=== PATIENT | female | born 1955 | race Caucasian/White ===

== ENCOUNTER → 2017-07-25 | Outpatient (REF) | payer OTHER ==
[2017-07-25 13:50] LABS: BASO # 0.1 10^3/uL (0.0-0.2); BASO % 0.5 % (0.0-1.0); EOS # 0.2 10^3/uL (0.0-0.50); EOS % 1.6 % (0.0-3.0); IMMATURE GRANULOCYTE % 0.6 % (0-0); LYMPH # 3.2 10^3/uL (1.5-4.5); LYMPH % 30.4 % (24.0-44.0); MEAN CORPUSCULAR HEMOGLOBIN 28.5 pg (27.0-33.0); MEAN CORPUSCULAR HGB CONC 32.2 g/dl (32.0-36.5); MEAN CORPUSCULAR VOLUME 88.6 fl (80.0-96.0); MONO # 0.8 10^3/uL (0.0-0.8); MONO % 7.1 % (0.0-5.0); NEUTROPHILS # 6.3 10^3/uL (1.8-7.7); NEUTROPHILS % 59.8 % (36.0-66.0); PLATELET COUNT, AUTOMATED 347 10^3/uL (150-450); RED CELL DISTRIBUTION WIDTH 13.4 % (11.5-14.5); WHITE BLOOD COUNT 10.5 10^3/uL (4.0-10.0)
[2017-07-25 14:12] LABS: ALBUMIN 3.6 GM/DL (3.2-5.2); ALBUMIN/GLOBULIN RATIO 1.29 (1.00-1.93); ALKALINE PHOSPHATASE 69 U/L (45-117); ALT/SGPT 27 U/L (12-78); ANION GAP 6 MEQ/L (8-16); AST/SGOT 11 U/L (7-37); BILIRUBIN,TOTAL 0.3 MG/DL (0.2-1.0); BLOOD UREA NITROGEN 26 MG/DL (7-18); CALCIUM LEVEL 9.6 MG/DL (8.8-10.2); CARBON DIOXIDE LEVEL 32 MEQ/L (21-32); CHLORIDE LEVEL 105 MEQ/L (98-107); CHOLESTEROL LEVEL 283 MG/DL (<200); CREATININE FOR GFR 0.89 MG/DL (0.55-1.02); FREE T4 0.93 NG/DL (0.76-1.46); GLOMERULAR FILTRATION RATE > 60.0 (>45); GLUCOSE, FASTING 101 MG/DL (80-110); POTASSIUM SERUM 4.9 MEQ/L (3.5-5.1); SODIUM LEVEL 143 MEQ/L (136-145); TOTAL PROTEIN 6.4 GM/DL (6.4-8.2); TRIGLYCERIDES LEVEL 246 MG/DL (<150)
== END ==
LOC: M LAB REF 13:31 → M LABDRWAD 13:33
PROVIDERS: ATTEND Nurse Practitioner Adult Health
DX: Z51.81 Encounter for therapeutic drug level monitoring (principal); Z79.01 Long term (current) use of anticoagulants; E55.9 Vitamin D deficiency, unspecified; E11.9 Type 2 diabetes mellitus without complications; I10 Essential (primary) hypertension; E78.4 Other hyperlipidemia

== ENCOUNTER → 2017-08-12 | Outpatient (CLI) | payer OTHER ==
--- NOTE | 2017-08-12 14:04 | REP ---
Clinical: Pain. Technique: AP, lateral, bilateral oblique views of the left fifth toe. Findings: Soft tissue swelling over the distal aspect of the fifth toe cannot be excluded and subtle nondisplaced fracture versus degenerative changes at the distal interphalangeal joint cannot be excluded. Evaluation is limited due to age related degenerative changes. No subcutaneous emphysema or radiodense foreign body. Impression: Subtle nondisplaced injury involving the middle/distal phalanges versus degenerative changes cannot be excluded. Metatarsal bone, metatarsophalangeal and proximal phalanx is normal. Signed by Grant Obando MD 08/12/2017 01:57 P
== END ==
LOC: M ADAMS 12:58
PROVIDERS: ATTEND Physician Assistant
DX: M79.675 Pain in left toe(s) (principal)

== ENCOUNTER → 2017-08-14 | Outpatient (REF) | payer OTHER | LOC: M SFHCWAGY 09:59 | PROVIDERS: ATTEND Nurse Practitioner Women's Health | DX: Z12.4 Encounter for screening for malignant neoplasm of cervix (principal) ==

== ENCOUNTER → 2017-08-14 | Outpatient (CLI) | payer OTHER ==
--- NOTE | 2017-08-14 10:46 | REPMRS ---
Patient History The patient states she had a clinical breast exam in 07/2017. Patient is postmenopausal. Family history of breast cancer in sister and endometrial cancer in mother. Digital Woman Screen Mammo: August 14, 2017 - Exam #: [id number] Bilateral CC and MLO view(s) were taken. Technologist: Ruma Cruz, Technologist Prior study comparison: April 09, 2016, digital woman screen mammo performed at [facility]. April 07, 2015, digital woman screen mammo performed at [facility]. March 10, 2014, digital woman screen mammo performed at [facility]. FINDINGS: There are scattered fibroglandular densities. There has been no change in the appearance of the mammogram from the prior studies. There is a mild amount of scattered fibroglandular density which is fairly symmetric. There is no interval development of dominant mass, architectural distortion, or clustered microcalcification suggestive of malignancy. ASSESSMENT: BI-RADS/ACR category 1 mammogram. Negative. Recommendation Routine screening mammogram in 1 year (for women over age 40). This mammogram was interpreted with the aid of an FDA-approved computer-aided dectection system. Electronically Signed By: Jesús Fernandez MD 08/14/17 1254
== END ==
LOC: M WHC 09:17
PROVIDERS: ATTEND Nurse Practitioner Women's Health
DX: Z12.31 Encounter for screening mammogram for malignant neoplasm of breast (principal)

== ENCOUNTER → 2017-11-13 | Outpatient (REF) | payer OTHER ==
[2017-11-13 13:06] LABS: BASO % 0.2 % (0.0-1.0); EOS # 0.1 10^3/uL (0.0-0.50); EOS % 0.8 % (0.0-3.0); HEMATOCRIT 36.6 % (36.0-47.0); HEMOGLOBIN 12.2 g/dl (12.0-16.0); IMMATURE GRANULOCYTE # 0.1 10^3/uL (0-0); IMMATURE GRANULOCYTE % 0.5 % (0-3.0); LYMPH # 2.3 10^3/uL (1.5-4.5); LYMPH % 25.4 % (24.0-44.0); MEAN CORPUSCULAR HGB CONC 33.3 g/dl (32.0-36.5); MEAN CORPUSCULAR VOLUME 87.1 fl (80.0-96.0); MONO # 0.6 10^3/uL (0.0-0.8); MONO % 6.5 % (0.0-5.0); NEUTROPHILS # 6.1 10^3/uL (1.8-7.7); NEUTROPHILS % 66.6 % (36.0-66.0); PLATELET COUNT, AUTOMATED 292 10^3/uL (150-450); RED CELL DISTRIBUTION WIDTH 13.2 % (11.5-14.5); WHITE BLOOD COUNT 9.1 10^3/uL (4.0-10.0)
[2017-11-13 13:19] LABS: ESTIMATED AVERAGE GLUCOSE 160 MG/DL (60-110); HEMOGLOBIN A1c 7.2 %
[2017-11-13 13:21] LABS: ALBUMIN 3.9 GM/DL (3.2-5.2); ALKALINE PHOSPHATASE 60 U/L (45-117); ALT/SGPT 33 U/L (12-78); ANION GAP 5 MEQ/L (8-16); AST/SGOT 20 U/L (7-37); BILIRUBIN,TOTAL 0.3 MG/DL (0.2-1.0); BLOOD UREA NITROGEN 17 MG/DL (7-18); CALCIUM LEVEL 8.9 MG/DL (8.8-10.2); CARBON DIOXIDE LEVEL 28 MEQ/L (21-32); CHLORIDE LEVEL 105 MEQ/L (98-107); CHOLESTEROL LEVEL 161 MG/DL (<200); CHOLESTEROL RISK RATIO 3.285 (<5); CREATININE FOR GFR 0.78 MG/DL (0.55-1.30); FREE T4 0.82 NG/DL (0.76-1.46); GLOMERULAR FILTRATION RATE > 60.0 (>45); GLUCOSE, FASTING 126 MG/DL (70-100); HDL CHOLESTEROL 49 MG/DL (>40); NON-HDL-C 112 MG/DL; POTASSIUM SERUM 4.7 MEQ/L (3.5-5.1); SODIUM LEVEL 138 MEQ/L (136-145); THYROID STIMULATING HORMONE 0.312 uIU/ML (0.358-3.740); TOTAL PROTEIN 6.9 GM/DL (6.4-8.2); TRIGLYCERIDES LEVEL 185 MG/DL (<150)
== END ==
LOC: M LABDRAW1 12:36
DX: Z95.5 Presence of coronary angioplasty implant and graft (principal); I21.3 ST elevation (STEMI) myocardial infarction of unspecified site; E11.9 Type 2 diabetes mellitus without complications; Z79.1 Long term (current) use of non-steroidal anti-inflammatories (NSAID); E55.9 Vitamin D deficiency, unspecified; E78.4 Other hyperlipidemia; Z79.899 Other long term (current) drug therapy

== ENCOUNTER → 2017-11-25 | Outpatient (CLI) | payer OTHER | LOC: M SLEEP HO 10:09 | DX: G47.8 Other sleep disorders (principal) | CPT/HCPCS: G0399 ==

== ENCOUNTER → 2018-04-29 | Outpatient (CLI) | payer OTHER | LOC: M SLEEP 08:08 | DX: R55 Syncope and collapse (principal); R42 Dizziness and giddiness; R51 Headache | CPT/HCPCS: 95819 ==

== ENCOUNTER → 2018-07-21 | Outpatient (REF) | payer OTHER ==
[2018-07-21 13:25] LABS: BASO % 0.6 % (0.0-1.0); EOS # 0.2 10^3/uL (0.0-0.50); EOS % 2.3 % (0.0-3.0); HEMATOCRIT 37.9 % (36.0-47.0); HEMOGLOBIN 12.4 g/dl (12.0-15.5); IMMATURE GRANULOCYTE % 0.3 % (0-3.0); LYMPH % 30.8 % (24.0-44.0); MEAN CORPUSCULAR HEMOGLOBIN 28.9 pg (27.0-33.0); MEAN CORPUSCULAR HGB CONC 32.7 g/dl (32.0-36.5); MEAN CORPUSCULAR VOLUME 88.3 fl (80.0-96.0); MONO # 0.5 10^3/uL (0.0-0.8); MONO % 7.5 % (0.0-5.0); NEUTROPHILS # 3.8 10^3/uL (1.8-7.7); NEUTROPHILS % 58.5 % (36.0-66.0); PLATELET COUNT, AUTOMATED 273 10^3/uL (150-450); RED BLOOD COUNT 4.29 10^6/uL (4.00-5.40); RED CELL DISTRIBUTION WIDTH 13.2 % (11.5-14.5); WHITE BLOOD COUNT 6.5 10^3/uL (4.0-10.0)
[2018-07-21 14:03] LABS: ALBUMIN 4.1 GM/DL (3.2-5.2); ALBUMIN/GLOBULIN RATIO 1.37 (1.00-1.93); ALKALINE PHOSPHATASE 64 U/L (45-117); ALT/SGPT 26 U/L (12-78); ANION GAP 8 MEQ/L (8-16); AST/SGOT 17 U/L (7-37); BILIRUBIN,TOTAL 0.4 MG/DL (0.2-1.0); BLOOD UREA NITROGEN 34 MG/DL (7-18); CALCIUM LEVEL 9.4 MG/DL (8.8-10.2); CARBON DIOXIDE LEVEL 26 MEQ/L (21-32); CHLORIDE LEVEL 105 MEQ/L (98-107); CHOLESTEROL LEVEL 166 MG/DL (<200); CHOLESTEROL RISK RATIO 3.192 (<5); CREATININE FOR GFR 1.19 MG/DL (0.55-1.30); GLOMERULAR FILTRATION RATE 48.9 (>45); GLUCOSE, FASTING 177 MG/DL (70-100); HDL CHOLESTEROL 52 MG/DL (>40); LDL CHOLESTEROL 62 MG/DL (<100); NON-HDL-C 114 MG/DL; SODIUM LEVEL 139 MEQ/L (136-145); TOTAL PROTEIN 7.1 GM/DL (6.4-8.2); TRIGLYCERIDES LEVEL 260 MG/DL (<150)
[2018-07-21 14:08] LABS: TOTAL 25(OH) VITAMIN D 33.5 NG/ML (30.0-100.0)
[2018-07-21 18:25] LABS: ESTIMATED AVERAGE GLUCOSE 148 MG/DL (60-110); HEMOGLOBIN A1c 6.8 %
== END ==
LOC: M LABDRWAD 12:39
DX: E11.9 Type 2 diabetes mellitus without complications (principal)

== ENCOUNTER → 2018-08-15 | Outpatient (CLI) | payer OTHER | LOC: M WHC 08:37 | DX: Z12.31 Encounter for screening mammogram for malignant neoplasm of breast (principal); Z80.3 Family history of malignant neoplasm of breast; Z80.49 Family history of malignant neoplasm of other genital organs | CPT/HCPCS: 77067 ==

== ENCOUNTER → 2018-11-09 | Outpatient (CLI) | payer OTHER ==
--- NOTE | 2018-11-10 19:01 | SLEEPCENT ---
DATE OF PROCEDURE: 11/09/2018 ORDERED BY: Esther Amador Nocturnal polysomnography was performed for the titration of pressure therapy in this patient with obstructive sleep apnea syndrome based on home testing revealing a respiratory event index of 12.6 with experiencing difficulty with autotitration devices. For testing, a ResMed AirFit F30 full face mask of medium size was used, 4 cm of water pressure were applied to the circuit and the lights were extinguished. 7 hours and 32 minutes of data were reviewed. There were 409 minutes of sleep identified. Sleep latency was normal at 6.5 minutes. Rapid eye movement (REM) latency mildly delayed at 164 minutes. Sleep architecture improved with optimal pressure therapy. There were three REM cycles noted of progressive duration. Overall sleep efficiency was 91.6%. The electrocardiogram showed a sinus rhythm with an average heart rate of 70 beats per minute. EEG showed normal waveforms for awake and sleep stages. Respiratory events were fully palliated with continuous positive airway pressure (CPAP) at a pressure +5. There was some limb activity noted early in the test, which improved with optimal pressure therapy. Limb movement arousal index of 4.1. IMPRESSION: Obstructive sleep apnea syndrome (G47.33). RECOMMENDATIONS: Nightly use of pressure therapy 5 cm of water.
== END ==
LOC: M SLEEP 20:00
PROVIDERS: ATTEND Nurse Practitioner Adult Health
DX: G47.33 Obstructive sleep apnea (adult) (pediatric) (principal)

== ENCOUNTER → 2018-12-20 | Outpatient (CLI) | payer OTHER ==
[2018-12-20 18:47] LABS: HEMOGLOBIN 11.8 g/dl (12.0-15.5); MEAN CORPUSCULAR HEMOGLOBIN 28.6 pg (27.0-33.0); MEAN CORPUSCULAR HGB CONC 31.9 g/dl (32.0-36.5); MEAN CORPUSCULAR VOLUME 89.8 fl (80.0-96.0); PLATELET COUNT, AUTOMATED 279 10^3/uL (150-450); RED BLOOD COUNT 4.12 10^6/uL (4.00-5.40); WHITE BLOOD COUNT 7.2 10^3/uL (4.0-10.0)
[2018-12-20 18:54] LABS: ALBUMIN 3.6 GM/DL (3.2-5.2); BILIRUBIN,TOTAL 0.4 MG/DL (0.2-1.0); CALCIUM LEVEL 9.4 MG/DL (8.8-10.2); CHOLESTEROL RISK RATIO 3.458 (<5); CREATININE FOR GFR 1.12 MG/DL (0.55-1.30); GLOMERULAR FILTRATION RATE 52.5 (>45); POTASSIUM SERUM 4.9 MEQ/L (3.5-5.1); THYROID STIMULATING HORMONE 1.73 uIU/ML (0.358-3.740); TOTAL PROTEIN 6.6 GM/DL (6.4-8.2)
[2018-12-20 19:51] LABS: HEMOGLOBIN A1c 7.4 %
[2018-12-22 10:35] LABS: TOTAL 25(OH) VITAMIN D 25.6 NG/ML (30.0-100.0)
== END ==
LOC: M ADAMS 08:21
PROVIDERS: ATTEND Nurse Practitioner Adult Health
DX: I10 Essential (primary) hypertension (principal); E11.9 Type 2 diabetes mellitus without complications; Z79.899 Other long term (current) drug therapy; E03.9 Hypothyroidism, unspecified

== ENCOUNTER 2019-02-20 09:40 | Day surgery (SDC) | payer OTHER ==
[~2019-02-20] VITALS: Ht 162.6 cm; Wt 88.6 kg
[~2019-02-20 09:40] MED LIST: ALL10TAB28 PO; ASPI81TA85 PO; B COTAB3 PO; CAL-TAB2 PO; CETI5SOL3 PO; CO Q100C PO; FISH1000 PO; FURO40TA2 PO; GABA-843 PO; LISI-538 PO; MULTCAP PO; NS 1,000 ML IV ONE; ROSU40TA3 PO; TRUL0.5I SC; ZETI10TA30 PO
[2019-02-20] MEDS ORDERED: PROPOFOL 200 MG/20 ML VIAL As Ordered ONE ×3 (12:19→12:34)
[2019-02-20] MEDS ORDERED: LIDOCAINE 2% INJ 100 MG/5 ML SDV (FOR ANES.) As Ordered ONE (12:19)
--- NOTE | 2019-02-20 12:55 | ROOR ---
Patient Name: Pema Palacios Procedure Date: 02/20/2019 12:08 PM Date of : 1955 Age: 63 Room: [facility] Gender: Female Note Status: Finalized Procedure: Colonoscopy Indications: High risk colon cancer surveillance: Personal history of colonic polyps Providers: Gabriel Burns MD Referring MD: JERALD GONZALEZ NP Requesting Provider: Medicines: Monitored Anesthesia Care Complications: No immediate complications. Procedure: Pre-Anesthesia Assessment: - Prior to the procedure, a History and Physical was performed, and patient medications and allergies were reviewed. The patient is competent. The risks and benefits of the procedure and the sedation options and risks were discussed with the patient. All questions were answered and informed consent was obtained. Patient identification and proposed procedure were verified by the physician, the nurse and the anesthesiologist in the procedure room. Mental Status Examination: alert and oriented. Airway Examination: normal oropharyngeal airway and neck mobility. Respiratory Examination: clear to auscultation. CV Examination: normal. Prophylactic Antibiotics: The patient does not require prophylactic antibiotics. Prior Anticoagulants: The patient has taken no previous anticoagulant or antiplatelet agents. ASA Grade Assessment: II - A patient with mild systemic disease. After reviewing the risks and benefits, the patient was deemed in satisfactory condition to undergo the procedure. The anesthesia plan was to use monitored anesthesia care (MAC). Immediately prior to administration of medications, the patient was re-assessed for adequacy to receive sedatives. The heart rate, respiratory rate, oxygen saturations, blood pressure, adequacy of pulmonary ventilation, and response to care were monitored throughout the procedure. The physical status of the patient was re-assessed after the procedure. The Colonoscope was introduced through the anus and advanced to the terminal ileum, with identification of the appendiceal orifice and IC valve. The colonoscopy was performed without difficulty. The patient tolerated the procedure well. The quality of the bowel preparation was good. The terminal ileum, ileocecal valve, appendiceal orifice, and rectum were photographed. Scope insertion time was 3 minutes. Scope withdrawal time was 10 minutes. The total duration of the procedure was 14 minutes. Findings: The perianal and digital rectal examinations were normal. The terminal ileum appeared normal. There was evidence of a prior end-to-end colo-colonic anastomosis in the distal ascending colon. This was patent and was characterized by healthy appearing mucosa. The anastomosis was traversed. Multiple small and large-mouthed diverticula were found from sigmoid to transverse colon. There was no evidence of diverticular bleeding. Non-bleeding external and internal hemorrhoids were found during retroflexion. The hemorrhoids were medium-sized. Impression: - The examined portion of the ileum was normal. - Patent end-to-end colo-colonic anastomosis, characterized by healthy appearing mucosa. - Moderate diverticulosis from sigmoid to transverse colon. There was no evidence of diverticular bleeding. - Non-bleeding external and internal hemorrhoids. - No specimens collected. Recommendation: - Patient has a contact number available for emergencies. The signs and symptoms of potential delayed complications were discussed with the patient. Return to normal activities tomorrow. Written discharge instructions were provided to the patient. - High fiber diet. - Continue present medications. - Repeat colonoscopy in 5 years for surveillance based on personal history of previous adenomatous polyps. - Return to GI clinic in [facility] (address [address], [address], [place], [facility]) in 4 -- 6 weeks. Please call GI clinic @ [phone] for apppointment date and time. - Return to primary care physician. Gabriel Burns MD Gabriel Burns MD 02/20/2019 12:55:12 PM Electronically signed by Gabriel Burns MD Number of Addenda: 0 Note Initiated On: 02/20/2019 12:08 PM Estimated Blood Loss: Estimated blood loss was minimal.
--- NOTE | 2019-02-20 12:57 | ROOR ---
Patient Name: Pema Palacios Procedure Date: 02/20/2019 12:07 PM Date of : 1955 Age: 63 Room: [facility] Gender: Female Note Status: Finalized Procedure: Upper GI endoscopy Indications: Epigastric abdominal pain, Heartburn Providers: Gabriel Burns MD Referring MD: JERALD GONZALEZ NP Requesting Provider: Medicines: Monitored Anesthesia Care Complications: No immediate complications. Procedure: Pre-Anesthesia Assessment: - Prior to the procedure, a History and Physical was performed, and patient medications and allergies were reviewed. The patient is competent. The risks and benefits of the procedure and the sedation options and risks were discussed with the patient. All questions were answered and informed consent was obtained. Patient identification and proposed procedure were verified by the physician, the nurse and the anesthesiologist in the procedure room. Mental Status Examination: alert and oriented. Airway Examination: normal oropharyngeal airway and neck mobility. Respiratory Examination: clear to auscultation. CV Examination: normal. Prophylactic Antibiotics: The patient does not require prophylactic antibiotics. Prior Anticoagulants: The patient has taken no previous anticoagulant or antiplatelet agents. ASA Grade Assessment: II - A patient with mild systemic disease. After reviewing the risks and benefits, the patient was deemed in satisfactory condition to undergo the procedure. The anesthesia plan was to use monitored anesthesia care (MAC). Immediately prior to administration of medications, the patient was re-assessed for adequacy to receive sedatives. The heart rate, respiratory rate, oxygen saturations, blood pressure, adequacy of pulmonary ventilation, and response to care were monitored throughout the procedure. The physical status of the patient was re-assessed after the procedure. The Endoscope was introduced through the mouth, and advanced to the second part of duodenum. The upper GI endoscopy was accomplished without difficulty. The patient tolerated the procedure well. Findings: LA Grade B (one or more mucosal breaks greater than 5 mm, not extending between the tops of two mucosal folds) esophagitis with no bleeding was found in the distal esophagus. Biopsies were taken with a cold forceps for histology. Verification of patient identification for the specimen was done by the physician and nurse using the patient's name, date and medical record number. Estimated blood loss was minimal. The Z-line was irregular and was found 35 cm from the incisors. Diffuse severe inflammation characterized by adherent blood, friability, granularity, linear erosions and serpentine ulcerations was found in the gastric body and in the gastric antrum. Two biopsies were obtained with cold forceps for histology in the gastric antrum, as well as two biopsies in the gastric body. Biopsies were taken with a cold forceps for Helicobacter pylori testing. No gross lesions were noted in the duodenal bulb and in the second portion of the duodenum. Biopsies for histology were taken with a cold forceps for evaluation of celiac disease. Impression: - LA Grade B reflux esophagitis. Rule out Nieto's esophagus. Biopsied. - Z-line irregular, 35 cm from the incisors. - Gastritis. Biopsied. - No gross lesions in the duodenal bulb and in the second portion of the duodenum. Biopsied. - Biopsies performed in the gastric antrum and in the gastric body. Recommendation: - Patient has a contact number available for emergencies. The signs and symptoms of potential delayed complications were discussed with the patient. Return to normal activities tomorrow. Written discharge instructions were provided to the patient. - High fiber diet. - Continue present medications. - Await pathology results. - Use Protonix (pantoprazole) 40 mg PO twice daily - to be taken in morning (1/2 hour before breakfast) and at bedtime ( atleast 3 hours after last meal) for 12 weeks. - Repeat upper endoscopy in 3 months for surveillance based on pathology results. - Return to GI clinic in [facility] (address [address], [address], [place], [facility]) in 4 -- 6 weeks. Please call GI clinic @ [phone] for apppointment date and time. - Return to primary care physician. Gabriel Burns MD Gabriel Burns MD 02/20/2019 12:56:37 PM Electronically signed by Garbiel Burns MD Number of Addenda: 0 Note Initiated On: 02/20/2019 12:07 PM Estimated Blood Loss: Estimated blood loss was minimal.
[2019-02-20 13:00] VITALS: BP 137/80
== END 2019-02-20 13:12 | disposition home or self-care (01) ==
LOC: M OPP 09:40
PROVIDERS: ATTEND Internal Medicine Gastroenterology
DX: K57.30 Diverticulosis of large intestine without perforation or abscess without bleeding (principal); K64.8 Other hemorrhoids; K21.0 Gastro-esophageal reflux disease with esophagitis; K22.8 Other specified diseases of esophagus; K29.70 Gastritis, unspecified, without bleeding; R10.13 Epigastric pain; R12 Heartburn; Z86.010 Personal history of colon polyps; Z98.0 Intestinal bypass and anastomosis status

== ENCOUNTER 2019-08-26 07:49 | Inpatient (IN) | payer OTHER ==
[~2019-08-26] VITALS: Ht 162.6 cm; Wt 87.3 kg
[~2019-08-26 07:49] MED LIST changes: -ALL10TAB28 PO; +ALL10TAB29 PO; -NS 1,000 ML IV ONE; -ROSU40TA3 PO; +ROSU40TA4 PO; +ZETI10TA16 PO; -ZETI10TA30 PO
[2019-08-26] MEDS ORDERED: METF-791 PO (08:03)
[2019-08-26] MEDS ORDERED: ONDANSETRON 4MG/2ML VIAL (J2405) IV ONE (08:30)
[2019-08-26] MEDS ORDERED: NS 1,000 ML IV ONE (08:30)
[2019-08-26 09:16] LABS: BASO % 0.1 % (0.0-1.0); HEMATOCRIT 37.9 % (36.0-47.0); HEMOGLOBIN 12.4 g/dl (12.0-15.5); LYMPH # 1.1 10^3/uL (1.5-5.0); MEAN CORPUSCULAR HEMOGLOBIN 28.4 pg (27.0-33.0); MEAN CORPUSCULAR HGB CONC 32.7 g/dl (32.0-36.5); MEAN CORPUSCULAR VOLUME 86.7 fl (80.0-96.0); MONO # 0.3 10^3/uL (0.0-0.8); MONO % 3.1 % (0.0-5.0); NEUTROPHILS # 9.6 10^3/uL (1.5-8.5); NEUTROPHILS % 86.4 % (36.0-66.0); PLATELET COUNT, AUTOMATED 306 10^3/uL (150-450); RED BLOOD COUNT 4.37 10^6/uL (4.00-5.40); WHITE BLOOD COUNT 11.1 10^3/uL (4.0-10.0)
[2019-08-26] MEDS ORDERED: PROMETHAZINE INJ 25 MG/ML VIAL (J2550) IV ONE (09:45)
[2019-08-26 10:04] LABS: ALBUMIN 4.1 GM/DL (3.2-5.2); ALT/SGPT 28 U/L (12-78); BILIRUBIN,DIRECT 0.1 MG/DL (0.0-0.2); BILIRUBIN,TOTAL 0.3 MG/DL (0.2-1.0); BLOOD UREA NITROGEN 49 MG/DL (7-18); CALCIUM LEVEL 9.3 MG/DL (8.8-10.2); CARBON DIOXIDE LEVEL 27 MEQ/L (21-32); CHLORIDE LEVEL 104 MEQ/L (98-107); CK-MB VALUE MASS < 1.0 NG/ML (<3.6); CPK CREATINE PHOSPHOKINASE 68 U/L (26-192); CREATININE FOR GFR 1.74 MG/DL (0.55-1.30); GLOMERULAR FILTRATION RATE 31.5 (>45); GLUCOSE, FASTING 238 MG/DL (70-100); LIPASE 5111 U/L (73-393); MB/CK RELATIVE INDEX 1.47 (< OR =4); SODIUM LEVEL 139 MEQ/L (136-145); TOTAL PROTEIN 7.3 GM/DL (6.4-8.2); TROPONIN I < 0.02 NG/ML (< 0.10)
[2019-08-26] MEDS ORDERED: NS 1,000 ML IV SCH (10:15)
[2019-08-26] MEDS ORDERED: MORPHINE 4 MG/ML 1ML VIAL/SYRINGE (J2270) IV ONE (10:30)
[2019-08-26] MEDS ORDERED: METOCLOPRAMIDE INJ 10MG/2ML VIAL (J2765) IV ONE (10:30)
[2019-08-26 10:42] LABS: AMYLASE 1198 U/L (25-115)
[2019-08-26] MEDS ORDERED: B-12100021 PO (11:08)
[2019-08-26] MEDS ORDERED: ACET1TAB55 PO (11:08)
[2019-08-26] MEDS ORDERED: VOLT1GEL15 TOP (11:08)
[2019-08-26] MEDS: HumaLOG INSULIN (NovoLOG) PER UNIT SC SCH ×3 (12:00→23:57)
--- NOTE | 2019-08-26 12:19 | REP ---
CT ABDOMEN AND PELVIS WITHOUT CONTRAST: CT abdomen and pelvis performed without oral or IV contrast. Sagittal and coronal reconstruction images are performed. Visualized lung bases demonstrate mild fibrotic change. The liver, spleen, and adrenals demonstrate no gross abnormality. No gross stones are seen in the gallbladder. Pancreas demonstrates extensive surrounding streaky densities in the peripancreatic fat and a mild amount of adjacent fluid consistent with pancreatitis. No focal pseudocyst is seen. There is a 1 cm cyst in the mid right kidney. There is no hydronephrosis bilaterally. There is moderate atherosclerotic calcification of the abdominal aorta without aneurysm. No adenopathy is seen. There is no free air. There may be some mild thickening of the proximal jejunum secondary to inflammatory changes of pancreatis. Otherwise no significant bowel abnormalities seen. There is sigmoid diverticulosis without acute diverticulitis. No pelvic mass is seen. Urinary bladder is mildly distended and grossly unremarkable. There are degenerative changes of the spine. There is a small hiatal hernia. IMPRESSION: Findings compatible with pancreatitis with a mild amount of adjacent peripancreatic fluid. No definite pseudocyst. No other acute abnormality is detected. Electronically Signed by Dewayne Lopez MD 08/31/2019 09:38 A
--- NOTE | 2019-08-26 12:59 | HPEPDOC ---
General Date of Admission 08/26/19 Date of Service: Aug 26, 2019 Primary Care Physician: A Attending Physician: MIRNA ORDONEZ MD Chief Complaint The patient is a 64-year-old female admitted with a reason for visit of N/V, Chest Pain. Source: Patient Exam Limitations: No limitations Timing/Duration: 24 hours Severity: Moderate Associated Symptoms: Nausea, Vomiting History of Present Illness This is 64 years old white female with past medical history of MS, hyperlipidemia, CAD, diabetes mellitus type 2, presented in ED with chief complaints of nausea, vomiting since last night followed by epigastric and midsternal chest pain. Chest pain is dull in nature, persistent, radiates to epigastric area associated with nausea, vomiting, not relieved with pain. The rest exacerbation and by food intake. Patient denies shortness of breath, syncope, dizziness, etc. Home Medications Scheduled Aspirin (Aspir 81) 81 Mg Tablet.dr, 81 MG PO DAILY, (Reported) Cetirizine HCl (Cetirizine HCl) 10 Mg Tablet, 10 MG PO DAILY, (Reported) Cyanocobalamin (Vitamin B-12) (B-12) 1,000 Mcg Tablet, 1,000 MCG PO DAILY, (Reported) Dulaglutide (Trulicity) 1.5 Mg/0.5 Ml Pen.injctr, 1.5 MG SC QWEEK, (Reported) SATURDAYS Ezetimibe (Zetia) 10 Mg Tablet, 10 MG PO DAILY, (Reported) Furosemide (Furosemide) 40 Mg Tablet, 40 MG PO DAILY, (Reported) Gabapentin (Gabapentin) 300 Mg Capsule, 300 MG PO TID, (Reported) Lisinopril (Lisinopril) 20 Mg Tablet, 20 MG PO DAILY, (Reported) Metformin HCl (Metformin HCl ER) 500 Mg Tab.er.24h, 1,000 MG PO BID, (Reported) Multivitamin (Multivitamins) 1 Each Capsule, 1 CAP PO DAILY, (Reported) Rosuvastatin Calcium (Rosuvastatin Calcium) 40 Mg Tablet, 20 MG PO QHS, (Reported) Scheduled PRN Acetaminophen (Acetaminophen) 325 Mg Tablet, 650 MG PO Q4H PRN for PAIN, (Reported) Diclofenac Sodium (Voltaren) 100 Gm Gel..gram., 2 GRAM TOP TID PRN for PAIN, (Reported) APPLY TO FEET Allergies Coded Allergies: tramadol (Verified Allergy, Unknown, does not like the way it makes her feel, 02/10/19) Past Medical History Medical History Diabetes mellitus type 2, CAD, lipidemia, status post MS, GERD Surgical History Resection of colon secondary to polyp left index finger surgery Family History None Social History * Smoker: Denies Alcohol: Denies Drugs: denies A-FIB/CHADSVASC A-FIB History Current/History of A-Fib/PAF?: No Review of Systems Constitutional: Denies: Chills, Fever, Malaise, Night Sweats, Weakness, Fatigue, Weight Loss, Lethargy, Other Eyes: Denies: Pain, Vision change, Conjunctivae inflammation, Eyelid inflammation, Redness, Other ENT: Denies: Head Aches, Ear Pain, Dysphagia, Sinus Congestion, Post Nasal Drip, Sore Throat, Epistaxis, Other Symptoms Skin: Denies: Rash, Lesions, Jaundice, Bruising, Itching, Dry, Breakdown, Nail Changes, Other Pulmonary: Denies: Dyspnea, Cough, Pleuritic Chest Pain, Other Symptoms Cardiovascular: Reports: Chest Pain Gastrointestinal: Reports: Nausea, Vomiting Genitourinary: Denies: Dysuria, Frequency, Incontinence, Hematuria, Retention, Other Symptoms Hematologic: Denies: Bruising, Bleeding Excessively, Petecchia, Purpura, Enlarged Lymph Nodes, Other Hematologic Endocrine: Denies: Polydipsia, Polyphagia, Polyuria, Heat Intolerance, Cold Intolerance, Other Endocrine Sx Musculoskeletal: Denies: Neck Pain, Back Pain, Shoulder Pain, Arm Pain, Hand Pain, Leg Pain, Foot Pain, Joint Pain, Muscle Pain, Spasms, Other Symptoms Neurological: Denies: Weakness, Numbness, Incoordination, Change in speech, Confusion, Seizures, Other Symptoms Psych: Denies: Mood Normal, Anxiety, Depression, Memory Issues, Thoughts of Self Harm, Anger, Thoughts of Harming Other, Other Psych Physical Examination General Exam: Positive: Alert, Cooperative Eye Exam: Positive: PERRLA, Conjunctiva & lids normal ENT Exam: Positive: Atraumatic, Mucous membr. moist/pink Neck Exam: Positive: Supple Chest Exam: Positive: Clear to auscultation, Normal air movement Heart Exam: Positive: Rate Normal, Normal S1, Normal S2 Abdomen Exam: Positive: Normal bowel sounds, Soft, Tenderness (mild tenderness at the epigastric area on palpation) Extremity Exam: Positive: Normal pulses Skin Exam: Positive: Nl turgor and temperature Neuro Exam: Positive: Normal Gait, Normal Speech, Sensation Intact, Cranial Nerves 3-12 NL Vital Signs Vital Signs Date Time Temp Pulse Resp B/P (MAP) Pulse Ox O2 Delivery O2 Flow Rate FiO2 08/26/19 12:19 91 97 08/26/19 12:15 16 133/63 (86) Room Air 08/26/19 08:07 98.6 Laboratory Data Labs 24H Laboratory Tests 2 08/26/19 09:07: Immature Granulocyte % (Auto) 0.4, Neutrophils (%) (Auto) 86.4H, Lymphocytes (%) (Auto) 10.0L, Monocytes (%) (Auto) 3.1, Eosinophils (%) (Auto) 0.0, Basophils (%) (Auto) 0.1, Neutrophils # (Auto) 9.6H, Lymphocytes # (Auto) 1.1L, Monocytes # (Auto) 0.3, Eosinophils # (Auto) 0.0, Basophils # (Auto) 0.0, Nucleated Red Blood Cells % (auto) 0.0, Anion Gap 8, Glomerular Filtration Rate 31.5L, Calcium Level 9.3, Total Bilirubin 0.3, Direct Bilirubin 0.1, Aspartate Amino Transf (AST/SGOT) 19, Alanine Aminotransferase (ALT/SGPT) 28, Alkaline Phosphatase 64, Total Creatine Kinase 68, Creatine Kinase MB < 1.0, Creatine Kinase MB Relative Index 1.47, Troponin I < 0.02, Total Protein 7.3, Albumin 4.1, Albumin/Globulin Ratio 1.28, Amylase Level 1198H, Lipase 5111H CBC/BMP Laboratory Tests 08/26/19 09:07 Problems (1) Acute pancreatitis Status: Acute Problem Text: 64 years old white female with past medical history of CAD, MS, hyperlipidemia, diabetes mellitus, presented with nausea, vomiting, abdominal and epigastric pain with chest pain. Patient was found to have a BUN 49, creatinine 1.7, amylase level 1198and lipase of 5111. CT of the abdomen consistent with acute pancreatitis, EKG is normal sinus rhythm, no acute ST-T changes and first troponin is negative Admit patient to MedSur floor with telemetry Nothing by mouth except ice chips Hold all by mouth meds until patient can tolerate by mouth intake IVF normal saline 70 mL per hour Protonix 40 mg IV every 24 hours Zofran 4 mg IV every 4 hours when necessary Morphine sulfate 4 mg IV every 4 hours when necessary Activity as tolerated DVT prophylaxis with Lovenox A.m. labs ordered (2) Chest pain Status: Acute Problem Text: Most likely atypical secondary to pancreatitis First troponin is negative. EKG is within normal limits Telemetry monitoring Serial troponins Hold all by mouth meds till patient is able to tolerate by mouth intake (3) Diabetes mellitus Status: Chronic Problem Text: Fingerstick blood sugar every 6 hours with coverage Plan / VTE VTE Prophylaxis Ordered?: Yes MIRNA ORDONEZ MD Aug 26, 2019 12:59
[2019-08-26] MEDS ORDERED: GLUCAGON FOR INJ 1 MG VIAL (J1610) SC PRN (13:00)
[2019-08-26] MEDS ORDERED: GLUCOSE 4 GM CHEW TABLET PO PRN (13:00)
[2019-08-26] MEDS ORDERED: DEXTROSE 50% 50 ML SYRINGE IV PRN (13:00)
[2019-08-26] MEDS: ENOXAPARIN 40 MG/0.4 ML SYRINGE (J1650) SC SCH (13:28)
[2019-08-26] MEDS: PANTOPRAZOLE 40MG INJ (PROTONIX) (C9113) IV SCH (13:28)
[2019-08-26] MEDS: NS 1,000 ML IV SCH ×2 (13:29→19:54)
[2019-08-26] MEDS: ONDANSETRON 4MG/2ML VIAL (J2405) IV PRN ×2 (14:39→19:10)
[2019-08-26] MEDS: MORPHINE 4 MG/ML 1ML VIAL/SYRINGE (J2270) IV PRN ×2 (14:40→21:07)
[2019-08-26 15:18] VITALS: BP 168/80
[2019-08-26 22:00] VITALS: BP 144/63
[2019-08-27] MEDS: ONDANSETRON 4MG/2ML VIAL (J2405) IV PRN ×5 (04:36→22:23)
[2019-08-27] MEDS: MORPHINE 4 MG/ML 1ML VIAL/SYRINGE (J2270) IV PRN ×5 (04:52→22:24)
[2019-08-27] MEDS: HumaLOG INSULIN (NovoLOG) PER UNIT SC SCH ×3 (05:41→18:28)
[2019-08-27 06:00] VITALS: BP 165/71
[2019-08-27 06:17] LABS: HEMATOCRIT 35.7 % (36.0-47.0); HEMOGLOBIN 11.2 g/dl (12.0-15.5); MEAN CORPUSCULAR HEMOGLOBIN 27.9 pg (27.0-33.0); MEAN CORPUSCULAR HGB CONC 31.4 g/dl (32.0-36.5); MEAN CORPUSCULAR VOLUME 88.8 fl (80.0-96.0); PLATELET COUNT, AUTOMATED 262 10^3/uL (150-450); RED BLOOD COUNT 4.02 10^6/uL (4.00-5.40); WHITE BLOOD COUNT 12.7 10^3/uL (4.0-10.0)
[2019-08-27 06:49] LABS: ALBUMIN 3.3 GM/DL (3.2-5.2); BILIRUBIN,TOTAL 0.3 MG/DL (0.2-1.0); CALCIUM LEVEL 8.3 MG/DL (8.8-10.2); CREATININE FOR GFR 1.29 MG/DL (0.55-1.30); GLOMERULAR FILTRATION RATE 44.4 (>45); MAGNESIUM LEVEL 1.7 MG/DL (1.8-2.4); POTASSIUM SERUM 4.1 MEQ/L (3.5-5.1); TOTAL PROTEIN 6.7 GM/DL (6.4-8.2)
[2019-08-27] MEDS: ENOXAPARIN 40 MG/0.4 ML SYRINGE (J1650) SC SCH (09:07)
[2019-08-27] MEDS ORDERED: MAG SULF 1GM/100ML (MAG RUN) 1 GM in IV 1 EA IV ONE (11:30)
--- NOTE | 2019-08-27 11:34 | IPNPDOC ---
Subjective Date Seen The patient was seen on 08/27/19. Subjective Chief Complaint/HPI Patient feels much better, abdominal pain has significantly decreased General: Denies: ROS Unobtainable, Chills, Night Sweats, Fatigue, Malaise, Normal Appetite, Other Symptoms Constitutional: Denies: Chills, Fever, Malaise, Night Sweats, Weakness, Fatigue, Weight Loss, Lethargy, Other Skin: Denies: Rash, Lesions, Jaundice, Bruising, Itching, Dry, Breakdown, Nail Changes, Other Pulmonary: Denies: Dyspnea, Cough, Pleuritic Chest Pain, Other Symptoms Cardiovascular: Denies: Chest Pain, Palpitations, Orthopnea, Paroxysmal Noc. Dyspnea, Edema, Lt Headedness, Other Symptoms Gastrointestinal: Reports: Abdominal Pain Genitourinary: Denies: Dysuria, Frequency, Incontinence, Hematuria, Retention, Other Symptoms Musculoskeletal: Denies: Neck Pain, Back Pain, Shoulder Pain, Arm Pain, Hand Pain, Leg Pain, Foot Pain, Joint Pain, Muscle Pain, Spasms, Other Symptoms Neurological: Denies: Weakness, Numbness, Incoordination, Change in speech, Confusion, Seizures, Other Symptoms Psych: Denies: Mood Normal, Anxiety, Depression, Memory Issues, Thoughts of Self Harm, Anger, Thoughts of Harming Other, Other Psych Objective Physical Examination General Exam: Positive: Alert, Cooperative Eye Exam: Positive: PERRLA, Conjunctiva & lids normal ENT Exam: Positive: Atraumatic, Mucous membr. moist/pink Neck Exam: Positive: Supple Chest Exam: Positive: Clear to auscultation, Normal air movement Heart Exam: Positive: Rate Normal, Normal S1, Normal S2 Abdomen Exam: Positive: Normal bowel sounds, Soft, Tenderness (, decreased tenderness at the epigastric area) Extremity Exam: Positive: Normal pulses Skin Exam: Positive: Nl turgor and temperature Neuro Exam: Positive: Normal Gait, Normal Speech, Sensation Intact, Cranial Nerves 3-12 NL Assessment /Plan Problems (1) Acute pancreatitis Status: Acute Problem Text: Patient is progressively improving She was nothing by mouth but will start clear liquid diet and progress diet as tolerated Her lipase is 476 today Patient will probably discharge home once she is asymptomatic completely and tolerating oral feeding (2) Diabetes mellitus Status: Chronic Problem Text: Fingerstick blood sugar every before meals and at bedtime with coverage (3) Acute kidney injury Status: Acute Problem Text: Improving clinical status, BUN 32, creatinine 1.29 Oral hydration will be started A.m. labs Plan/VTE VTE Prophylaxis Ordered?: Yes VS, I&O, 24H, Fishbone Vital Signs/I&O Vital Signs Date Time Temp Pulse Resp B/P (MAP) Pulse Ox O2 Delivery O2 Flow Rate FiO2 08/27/19 09:18 16 08/27/19 06:00 98.6 68 165/71 (102) 93 Room Air I&O- Last 24 Hours up to 6 AM 08/27/19 06:00 Intake Total 1820 ml Output Total 600 ml Balance 1220 ml Laboratory Data 24H LABS Laboratory Tests 2 08/26/19 13:33: Bedside Glucose (Misc Panel) 186H 08/26/19 17:55: Bedside Glucose (Misc Panel) 152H 08/26/19 23:55: Bedside Glucose (Misc Panel) 184H 08/27/19 05:21: Nucleated Red Blood Cells % (auto) 0.0, Anion Gap 5L, Glomerular Filtration Rate 44.4L, Calcium Level 8.3L, Magnesium Level 1.7L, Total Bilirubin 0.3, Aspartate Amino Transf (AST/SGOT) 13, Alanine Aminotransferase (ALT/SGPT) 25, Alkaline Phosphatase 51, Total Protein 6.7, Albumin 3.3, Albumin/Globulin Ratio 0.97L, Lipase 476H 08/27/19 05:32: Bedside Glucose (Misc Panel) 183H CBC/BMP Laboratory Tests 08/27/19 05:21 MIRNA ORDONEZ MD Aug 27, 2019 11:34
[2019-08-27] MEDS: PANTOPRAZOLE 40MG INJ (PROTONIX) (C9113) IV SCH (13:55)
[2019-08-27 14:00] VITALS: BP 166/60
--- NOTE | 2019-08-27 17:43 | ECGEPIP ---
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
[2019-08-27 22:00] VITALS: BP 172/72
[2019-08-28] MEDS: HumaLOG INSULIN (NovoLOG) PER UNIT SC SCH ×5 (00:13→17:24)
[2019-08-28] MEDS: NORCO, ANEXSIA 5/325MG TABLET (HYDROcodone/ACETAMINOPHEN) PO PRN ×5 (02:09→22:52)
[2019-08-28 06:00] VITALS: BP 166/64
[2019-08-28 06:13] LABS: BASO % 0.2 % (0.0-1.0); EOS % 0.1 % (0.0-3.0); HEMATOCRIT 32.8 % (36.0-47.0); HEMOGLOBIN 10.6 g/dl (12.0-15.5); LYMPH # 1.6 10^3/uL (1.5-5.0); MEAN CORPUSCULAR HEMOGLOBIN 28.7 pg (27.0-33.0); MEAN CORPUSCULAR HGB CONC 32.3 g/dl (32.0-36.5); MEAN CORPUSCULAR VOLUME 88.9 fl (80.0-96.0); MONO # 1.1 10^3/uL (0.0-0.8); MONO % 7.5 % (0.0-5.0); NEUTROPHILS # 11.7 10^3/uL (1.5-8.5); PLATELET COUNT, AUTOMATED 234 10^3/uL (150-450); RED BLOOD COUNT 3.69 10^6/uL (4.00-5.40); WHITE BLOOD COUNT 14.6 10^3/uL (4.0-10.0)
[2019-08-28 06:41] LABS: BILIRUBIN,TOTAL 0.5 MG/DL (0.2-1.0); CALCIUM LEVEL 8.7 MG/DL (8.8-10.2); CREATININE FOR GFR 1.13 MG/DL (0.55-1.30); GLOMERULAR FILTRATION RATE 51.8 (>45); POTASSIUM SERUM 4.1 MEQ/L (3.5-5.1); TOTAL PROTEIN 6.6 GM/DL (6.4-8.2)
[2019-08-28] MEDS: ENOXAPARIN 40 MG/0.4 ML SYRINGE (J1650) SC SCH (09:27)
--- NOTE | 2019-08-28 12:25 | IPNPDOC ---
Subjective Date Seen The patient was seen on 08/28/19. Subjective Chief Complaint/HPI Patient is feeling slightly better but is still unable to tolerate full diet, but has been tolerating some clear liquids and Jell-O and now complains of generalized body aches General: Reports: Fatigue, Malaise Constitutional: Denies: Chills, Fever, Malaise, Night Sweats, Weakness, Fatigue, Weight Loss, Lethargy, Other Pulmonary: Denies: Dyspnea, Cough, Pleuritic Chest Pain, Other Symptoms Cardiovascular: Denies: Chest Pain, Palpitations, Orthopnea, Paroxysmal Noc. Dyspnea, Edema, Lt Headedness, Other Symptoms Gastrointestinal: Denies: Nausea, Vomiting, Abdominal Pain, Diarrhea, Constipation, Melena, Hematochezia, Other Symptoms Genitourinary: Denies: Dysuria, Frequency, Incontinence, Hematuria, Retention, Other Symptoms Musculoskeletal: Denies: Neck Pain, Back Pain, Shoulder Pain, Arm Pain, Hand Pain, Leg Pain, Foot Pain, Joint Pain, Muscle Pain, Spasms, Other Symptoms Neurological: Denies: Weakness, Numbness, Incoordination, Change in speech, Confusion, Seizures, Other Symptoms Objective Physical Examination General Exam: Positive: Alert, Cooperative Eye Exam: Positive: PERRLA, Conjunctiva & lids normal ENT Exam: Positive: Atraumatic, Mucous membr. moist/pink Neck Exam: Positive: Supple Chest Exam: Positive: Clear to auscultation, Normal air movement Heart Exam: Positive: Rate Normal, Normal S1, Normal S2 Abdomen Exam: Positive: Normal bowel sounds, Soft, Tenderness (, decreased tenderness at the epigastric area) Extremity Exam: Positive: Normal pulses Skin Exam: Positive: Nl turgor and temperature Neuro Exam: Positive: Normal Gait, Normal Speech, Sensation Intact, Cranial Nerves 3-12 NL Assessment /Plan Problems (1) Acute pancreatitis Status: Acute Problem Text: Acute pancreatitis has resolved. Her lipase level today is 78 CBC is within normal range. Electrolytes are normal. Improved BUN/creatinine Patient is still unable to tolerate regular diet, hence we will continue with clear diet liquid diet and slowly progress to regular diet today (2) Diabetes mellitus Status: Chronic Problem Text: Fingerstick blood sugar every before meals and at bedtime with coverage (3) Acute kidney injury Status: Acute Problem Text: Patient's renal functions and improved BUN is 19 and creatinine is 1.13 Oral hydration has been recommended Plan/VTE VTE Prophylaxis Ordered?: Yes VS[facility] Signs/I&O Vital Signs Date Time Temp Pulse Resp B/P (MAP) Pulse Ox O2 Delivery O2 Flow Rate FiO2 08/28/19 07:37 18 08/28/19 06:00 98.2 76 166/64 (98) 95 Room Air I&O- Last 24 Hours up to 6 AM 08/28/19 06:00 Intake Total 2010 ml Output Total 825 ml Balance 1185 ml Laboratory Data 24H LABS Laboratory Tests 2 08/27/19 18:17: Bedside Glucose (Misc Panel) 205H 08/27/19 23:47: Bedside Glucose (Misc Panel) 145H 08/28/19 05:30: Immature Granulocyte % (Auto) 1.2, Neutrophils (%) (Auto) 80.0H, Lymphocytes (%) (Auto) 11.0L, Monocytes (%) (Auto) 7.5H, Eosinophils (%) (Auto) 0.1, Basophils (%) (Auto) 0.2, Neutrophils # (Auto) 11.7H, Lymphocytes # (Auto) 1.6, Monocytes # (Auto) 1.1H, Eosinophils # (Auto) 0.0, Basophils # (Auto) 0.0, Nucleated Red Blood Cells % (auto) 0.0, Anion Gap 6L, Glomerular Filtration Rate 51.8, Calcium Level 8.7L, Total Bilirubin 0.5#, Aspartate Amino Transf (AST/SGOT) 11, Alanine Aminotransferase (ALT/SGPT) 19, Alkaline Phosphatase 57, Total Protein 6.6, Albumin 3.0L, Albumin/Globulin Ratio 0.83L, Lipase 78 08/28/19 11:20: Urine Color YELLOW, Urine Appearance HAZY, Urine pH 5.0, Urine Specific [place] 1.023, Urine Protein 2+H, Urine Glucose (UA) 1+H, Urine Ketones 1+H, Urine Blood 1+H, Urine Nitrite NEGATIVE, Urine Bilirubin NEGATIVE, Urine Urobilinogen 0.2, Urine Leukocyte Esterase NEGATIVE, Urine WBC (Auto) 3, Urine RBC (Auto) 8H, Urine Hyaline Casts (Auto) 0, Urine Bacteria (Auto) 1+H, Urine Squamous Epithelial Cells 2, Urine Mucus (Auto) SMALL, Urine Sperm (Auto) 08/28/19 11:46: Bedside Glucose (Misc Panel) 158H CBC/BMP Laboratory Tests 08/28/19 05:30 MIRNA ORDONEZ MD Aug 28, 2019 12:25
[2019-08-28] MEDS: PANTOPRAZOLE 40MG INJ (PROTONIX) (C9113) IV SCH (12:29)
[2019-08-28] MEDS: ONDANSETRON 4MG/2ML VIAL (J2405) IV PRN ×3 (13:16→22:55)
[2019-08-28 14:00] VITALS: BP 152/50
--- NOTE | 2019-08-28 16:32 | REP ---
CT ABDOMEN/PELVIS WITHOUT IV AND WITHOUT ORAL CONTRAST: HISTORY: Hematuria. Rule out kidney stones. 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 There is bilateral lower lobe platelike atelectasis, which is a new finding compared with the August 16, 2019 study. No matt pleural effusion is seen. No upper abdominal ascites is noted. The liver and the spleen remain intact and homogeneous. No focal abnormality is noted in the gallbladder. There is pancreatic and peripancreatic stranding and swelling consistent with pancreatitis again noted. This is essentially unchanged from the study done 2 days prior. No evidence of abscess or necrosis on this noncontrast CT study. No peripancreatic or intrapancreatic fluid collection is seen. However, there is mild ascites in the pelvic reflection today as a new finding. A small quantity of fluid is seen in the right pericolic gutter. There is a linear calcification in the renal pelvis on the left which is felt to be in the renal artery. No hydronephrosis is seen on either side. No renal calculus disease is appreciated. Urinary bladder is unremarkable. No uterine abnormality is seen. There is left colonic diverticulosis again noted without CT evidence of diverticulitis. No free air or obstruction is seen. There is a suture line in the right colon consistent with previous bowel surgery. IMPRESSION: Pancreatitis pattern persists. There are new findings consisting of mild ascites, ileus pattern in the bowel gas, and new bilateral lower lobe platelike atelectasis. Electronically Signed by Marvel Fernandez MD 08/28/2019 05:05 P
[2019-08-28] MEDS ORDERED: HumaLOG INSULIN (NovoLOG) PER UNIT SC SCH (21:00)
[2019-08-28 22:00] VITALS: BP 130/70
[2019-08-29 06:00] VITALS: BP 136/82
[2019-08-29] MEDS: ONDANSETRON 4MG/2ML VIAL (J2405) IV PRN (06:19)
[2019-08-29] MEDS: NORCO, ANEXSIA 5/325MG TABLET (HYDROcodone/ACETAMINOPHEN) PO PRN (06:19)
[2019-08-29 06:27] LABS: BASO % 0.1 % (0.0-1.0); EOS % 0.1 % (0.0-3.0); HEMATOCRIT 33.4 % (36.0-47.0); HEMOGLOBIN 11.1 g/dl (12.0-15.5); LYMPH # 1.3 10^3/uL (1.5-5.0); LYMPH % 9.7 % (24.0-44.0); MEAN CORPUSCULAR HEMOGLOBIN 28.7 pg (27.0-33.0); MEAN CORPUSCULAR HGB CONC 33.2 g/dl (32.0-36.5); MEAN CORPUSCULAR VOLUME 86.3 fl (80.0-96.0); MONO # 0.8 10^3/uL (0.0-0.8); MONO % 6.1 % (0.0-5.0); NEUTROPHILS # 11.1 10^3/uL (1.5-8.5); NEUTROPHILS % 82.7 % (36.0-66.0); PLATELET COUNT, AUTOMATED 248 10^3/uL (150-450); RED BLOOD COUNT 3.87 10^6/uL (4.00-5.40); WHITE BLOOD COUNT 13.4 10^3/uL (4.0-10.0)
[2019-08-29 06:56] LABS: ALBUMIN 2.8 GM/DL (3.2-5.2); BILIRUBIN,TOTAL 0.5 MG/DL (0.2-1.0); CALCIUM LEVEL 8.7 MG/DL (8.8-10.2); CREATININE FOR GFR 1.05 MG/DL (0.55-1.30); GLOMERULAR FILTRATION RATE 56.3 (>45); POTASSIUM SERUM 3.9 MEQ/L (3.5-5.1); TOTAL PROTEIN 6.7 GM/DL (6.4-8.2)
[2019-08-29] MEDS: ENOXAPARIN 40 MG/0.4 ML SYRINGE (J1650) SC SCH (07:40)
[2019-08-29] MEDS: HumaLOG INSULIN (NovoLOG) PER UNIT SC SCH (07:40)
--- NOTE | 2019-08-29 08:35 | REP ---
Abdomen series: Three views. History: Ileus. Comparison chest x-ray: April 02, 2009. Findings: There are increased markings in the bases bilaterally consistent with discoid atelectasis and/or infiltrate. No free subdiaphragmatic air is seen. Heart is not enlarged. Supine and erect views of the abdomen show surgical sutures in the right midabdomen and tubal ligation bands in the pelvis. Small and large bowel loops are normal in caliber. No obstruction or significant air fluid level seen. Impression: Increased markings in the lung bases bilaterally, atelectasis versus infiltrate. Postop changes in the abdomen. Otherwise negative. Electronically Signed by Marvel Fernandez MD 08/29/2019 08:27 A
[2019-08-29 09:00] VITALS: BP 110/58
[2019-08-29] MEDS ORDERED: AUGM875T28 PO (10:36)
--- NOTE | 2019-08-29 13:05 | DS.PDOC ---
Discharge Summary General Date of Admission Aug 26, 2019 at 12:47 Date of Discharge 08/29/19 Discharge Summary PROCEDURES PERFORMED DURING STAY: None. ADMITTING DIAGNOSES: 1. Abdominal pain, acute pancreatitis. DISCHARGE DIAGNOSES: 1. Abdominal pain, acute pancreatitis, bilateral lung atelectasis, hyper lipidemia, CAD, diabetes mellitus type 2. COMPLICATIONS/CHIEF COMPLAINT: Acute Pancreatitis. HISTORY OF PRESENT ILLNESS: This is 64 years old white female with past medical history of [place], hyperlipidemia, CAD, diabetes mellitus type 2, presented in ED with chief complaints of nausea, vomiting since last night followed by epigastric and midsternal chest pain. Chest pain is dull in nature, persistent, radiates to epigastric area associated with nausea, vomiting, not relieved with pain. The rest exacerbation and by food intake. Patient denies shortness of breath, syncope, dizziness, etc.. HOSPITAL COURSE: Patient was admitted to medical floor with the chief complaints of abdominal pain, was found to have elevated lipase levels consistent with acute pancreatitis. The patient is reluctant which also confirmed acute pancreatitis. Patient initially was kept nothing by mouth IV fluids were started and she was started on IV PPI as well. Patient progressively improved. Her last lipase is essentially within normal limits. She was started on clear liquids followed by progressively increasing diet and she can't tolerate regular diet now. No abdominal pain, no nausea, no vomiting. She had a slight elevated WBC count. Chest x-ray was consistent with possible bibasilar atelectasis, as she is afebrile and no respiratory symptoms. There is no evidence of any pneumonia on examination. And patient's WBC count is progressively declining without any antibiotics. Patient will be discharged home today on a by mouth antibiotic as prophylaxis for pneumonia and has been advised to eat low fat diet and follow with her PCP in one week.. DISCHARGE MEDICATIONS: Please see below. ALLERGIES: Please see below. PHYSICAL EXAMINATION ON DISCHARGE: VITAL SIGNS: Please see below. GENERAL: Within normal limits HEENT: PERRLA. Extraocular muscles intact NECK: Supple, no JVD, no lymphadenopathy CARDIOVASCULAR EXAMINATION: S1, S2, regular RESPIRATORY EXAMINATION: Clear to A&P ABDOMINAL EXAMINATION: , Soft, non-tender. Bowel sound present EXTREMITIES: No clubbing, cyanosis, edema SKIN: Normal NEUROLOGICAL EXAMINATION: . No focal motor sensory deficit PSYCHIATRIC EXAMINATION: Normal LABORATORY DATA: Please see below. IMAGING: CT abdomen and pelvis:Findings compatible with pancreatitis with a mild amount of adjacent peripancreatic fluid. No definite pseudocyst. No other acute abnormality is detected. PROGNOSIS: Good ACTIVITY: As tolerated. DIET: As tolerated. Low-fat diet DISCHARGE PLAN: Follow with PCP in one week DISPOSITION: 01 Home, Self-Care. DISCHARGE INSTRUCTIONS: 1. As per discharge instructions. ITEMS TO FOLLOWUP ON ON OUTPATIENT: 1. Follow with PCP in one week. DISCHARGE CONDITION: Stable. TIME SPENT ON DISCHARGE: 45 minutes. Vital Signs/I&Os Vital Signs Date Time Temp Pulse Resp B/P (MAP) Pulse Ox O2 Delivery O2 Flow Rate FiO2 08/29/19 09:00 97.9 62 14 110/58 (75) 91 Room Air I&O- Last 24 Hours up to 6 AM 08/29/19 06:00 Intake Total 820 ml Output Total 300 ml Balance 520 ml Laboratory Data Labs 24H Laboratory Tests 2 08/28/19 16:31: Bedside Glucose (Misc Panel) 146H 08/28/19 19:53: Bedside Glucose (Misc Panel) 166H 08/29/19 06:03: Immature Granulocyte % (Auto) 1.3, Neutrophils (%) (Auto) 82.7H, Lymphocytes (%) (Auto) 9.7L, Monocytes (%) (Auto) 6.1H, Eosinophils (%) (Auto) 0.1, Basophils (%) (Auto) 0.1, Neutrophils # (Auto) 11.1H, Lymphocytes # (Auto) 1.3L, Monocytes # (Auto) 0.8, Eosinophils # (Auto) 0.0, Basophils # (Auto) 0.0, Nucleated Red Blood Cells % (auto) 0.0, Anion Gap 10, Glomerular Filtration Rate 56.3, Calcium Level 8.7L, Total Bilirubin 0.5, Aspartate Amino Transf (AST/SGOT) 18, Alanine Aminotransferase (ALT/SGPT) 19, Alkaline Phosphatase 72, Total Protein 6.7, Albumin 2.8L, Albumin/Globulin Ratio 0.72L CBC/BMP Laboratory Tests 08/29/19 06:03 FSBS Laboratory Tests Test 08/28/19 16:31 08/28/19 19:53 Range/Units Bedside Glucose (Misc Panel) 146 166 80-115 MG/DL Discharge Medications Scheduled Amoxicillin/Potassium Clav (Augmentin 875-125 Tablet) 1 Each Tablet, 1 TAB PO BID Aspirin (Aspir 81) 81 Mg Tablet.dr, 81 MG PO DAILY, (Reported) Cetirizine HCl (Cetirizine HCl) 10 Mg Tablet, 10 MG PO DAILY, (Reported) Cyanocobalamin (Vitamin B-12) (B-12) 1,000 Mcg Tablet, 1,000 MCG PO DAILY, (Reported) Dulaglutide (Trulicity) 1.5 Mg/0.5 Ml Pen.injctr, 1.5 MG SC QWEEK, (Reported) SATURDAYS Ezetimibe (Zetia) 10 Mg Tablet, 10 MG PO DAILY, (Reported) Furosemide (Furosemide) 40 Mg Tablet, 40 MG PO DAILY, (Reported) Gabapentin (Gabapentin) 300 Mg Capsule, 300 MG PO TID, (Reported) Lisinopril (Lisinopril) 20 Mg Tablet, 20 MG PO DAILY, (Reported) Metformin HCl (Metformin HCl ER) 500 Mg Tab.er.24h, 1,000 MG PO BID, (Reported) Multivitamin (Multivitamins) 1 Each Capsule, 1 CAP PO DAILY, (Reported) Rosuvastatin Calcium (Rosuvastatin Calcium) 40 Mg Tablet, 20 MG PO QHS, (Reported) Scheduled PRN Acetaminophen (Acetaminophen) 325 Mg Tablet, 650 MG PO Q4H PRN for PAIN, (Reported) Diclofenac Sodium (Voltaren) 100 Gm Gel..gram., 2 GRAM TOP TID PRN for PAIN, (Reported) APPLY TO FEET Allergies Coded Allergies: tramadol (Verified Allergy, Unknown, does not like the way it makes her feel, 02/10/19) MIRNA ORDONEZ MD Aug 29, 2019 13:05
== END 2019-08-29 11:23 | disposition home or self-care (01) | DRG 282 ==
LOC: EDBD 07:49 → M ED 07:49 → M ED INP 12:47 → M MSPAV 14:58
PROVIDERS: ADMIT Internal Medicine; ATTEND Internal Medicine
DX: K85.90 Acute pancreatitis without necrosis or infection, unspecified (principal); J98.11 Atelectasis; E78.5 Hyperlipidemia, unspecified; I25.10 Atherosclerotic heart disease of native coronary artery without angina pectoris; E11.9 Type 2 diabetes mellitus without complications; I25.2 Old myocardial infarction; Z79.82 Long term (current) use of aspirin; Z79.84 Long term (current) use of oral hypoglycemic drugs; Z79.899 Other long term (current) drug therapy; Z88.8 Allergy status to other drugs, medicaments and biological substances; K21.9 Gastro-esophageal reflux disease without esophagitis; N18.9 Chronic kidney disease, unspecified

== ENCOUNTER → 2019-10-31 | Outpatient (CLI) | payer BC ==
[~2019-10-31] MED LIST changes: +ACET1TAB55 PO; +AUGM875T28 PO; +B-12100021 PO; +METF-791 PO; +VOLT1GEL15 TOP
[2019-10-31 11:45] LABS: BASO % 0.6 % (0.0-1.0); EOS # 0.1 10^3/uL (0.0-0.5); EOS % 1.9 % (0.0-3.0); HEMATOCRIT 37.6 % (36.0-47.0); HEMOGLOBIN 12.1 g/dl (12.0-15.5); LYMPH % 32.3 % (24.0-44.0); MEAN CORPUSCULAR HEMOGLOBIN 28.1 pg (27.0-33.0); MEAN CORPUSCULAR HGB CONC 32.2 g/dl (32.0-36.5); MEAN CORPUSCULAR VOLUME 87.4 fl (80.0-96.0); MONO # 0.5 10^3/uL (0.0-0.8); MONO % 8.2 % (0.0-5.0); NEUTROPHILS # 3.6 10^3/uL (1.5-8.5); NEUTROPHILS % 56.8 % (36.0-66.0); PLATELET COUNT, AUTOMATED 246 10^3/uL (150-450); WHITE BLOOD COUNT 6.3 10^3/uL (4.0-10.0)
[2019-10-31 11:56] LABS: ALBUMIN 3.9 GM/DL (3.2-5.2); BILIRUBIN,TOTAL 0.4 MG/DL (0.2-1.0); CALCIUM LEVEL 9.2 MG/DL (8.8-10.2); CHOLESTEROL RISK RATIO 3.644 (<5); CREATININE FOR GFR 1.11 MG/DL (0.55-1.30); GLOMERULAR FILTRATION RATE 52.8 (>45); POTASSIUM SERUM 4.4 MEQ/L (3.5-5.1); THYROID STIMULATING HORMONE 1.82 uIU/ML (0.358-3.740); TOTAL PROTEIN 6.5 GM/DL (6.4-8.2)
[2019-10-31 12:02] LABS: HEMOGLOBIN A1c 7.1 %
== END ==
LOC: M LABDRWAD 08:20
PROVIDERS: ATTEND Nurse Practitioner Adult Health
DX: E11.65 Type 2 diabetes mellitus with hyperglycemia (principal); E78.49 Other hyperlipidemia; K85.90 Acute pancreatitis without necrosis or infection, unspecified; Z79.899 Other long term (current) drug therapy

== ENCOUNTER → 2019-11-02 | Outpatient (CLI) | payer BC ==
--- NOTE | 2019-11-02 11:01 | REPMRS ---
Patient History The patient states she has not had a clinical breast exam in over a year. Family history of breast cancer in sister, endometrial cancer in mother. Digital Woman Screen Mammo: November 02, 2019 - Exam #: [id number] Bilateral CC and MLO view(s) were taken. Technologist: Luisa Turcios, Technologist Prior study comparison: August 15, 2018, bilateral digital woman screen mammo performed at [facility]. August 14, 2017, digital woman screen mammo performed at [facility]. April 09, 2016, digital woman screen mammo performed at [facility]. FINDINGS: There are scattered fibroglandular densities. There has been no change in the appearance of the mammogram from the prior studies. There is a mild amount of scattered fibroglandular density which is fairly symmetric. There is no interval development of dominant mass, architectural distortion, or grouped microcalcification suggestive of malignancy. 3-D tomosynthesis shows no additional findings. Assessment: BI-RADS/ACR category 1 mammogram. Negative Mammogram. Recommendation Routine screening mammogram of both breasts in 1 year (for women over age 40). This patient's Lifetime Breast Cancer Risk is estimated at 12.9 %. This mammogram was interpreted with the aid of an FDA-approved computer-aided dectection system. Electronically Signed By: Jesús Fernandez MD 11/02/19 0088
== END ==
LOC: M WHC 09:54
PROVIDERS: ATTEND Nurse Practitioner Women's Health
DX: Z12.31 Encounter for screening mammogram for malignant neoplasm of breast (principal)

== ENCOUNTER → 2019-12-21 | Outpatient (REF) | payer BC ==
[2019-12-21 17:09] LABS: CREATININE FOR GFR 1.08 MG/DL (0.55-1.30); GLOMERULAR FILTRATION RATE 54.5 (>45)
== END ==
LOC: M LABDRWAD 16:17
PROVIDERS: ATTEND Internal Medicine Gastroenterology
DX: K85.00 Idiopathic acute pancreatitis without necrosis or infection (principal)

== ENCOUNTER → 2019-12-24 | Outpatient (CLI) | payer BC ==
[~2019-12-24] MED LIST changes: +PROHANCE 279.3MG/ML 5ML VIAL (A9576) As Ordered ONE
--- NOTE | 2019-12-24 17:36 | REP ---
MRI PANCREAS WITH AND WITHOUT CONTRAST: TECHNIQUE: Multiple sequences obtained in the axial and coronal planes prior to and following the intravenous administration of 8 mL ProHance. COMPARISON: Comparison made with CT abdomen and pelvis 08/28/2019. FINDINGS: The pancreas demonstrates normal signal and enhancement. There is no current evidence of pancreatitis. No pancreatic mass is seen. There is no pancreatic cyst or pseudocyst. Pancreatic duct is not dilated. There is evidence of pancreas divisum with the main pancreatic duct draining directly into the duodenum via the minor papilla. Visualized liver demonstrates no mass. The spleen is unremarkable. Adrenal glands are normal. There is a cyst in the anterior mid to lower right kidney 1.4 cm in diameter. There is a subcentimeter cyst in the medial aspect of the left kidney. There is no hydronephrosis bilaterally. No adenopathy or free fluid is seen in the visualized abdomen. IMPRESSION: No evidence of pancreatitis or pancreatic mass. No pseudocyst. No pancreatic ductal dilatation. There is evidence of pancreas divisum with the main duct draining directly into the duodenum via the minor papilla. Electronically Signed by Dewayne Lopez MD 12/25/2019 09:32 A
== END ==
LOC: M RAD 12:28
PROVIDERS: ATTEND Internal Medicine Gastroenterology
DX: K85.90 Acute pancreatitis without necrosis or infection, unspecified (principal); R63.4 Abnormal weight loss
CPT/HCPCS: 74183; A9576

== ENCOUNTER → 2020-11-03 | Outpatient (CLI) | payer BC ==
[~2020-11-03] MED LIST changes: -ALL10TAB29 PO; -ASPI81TA85 PO; +ASPI81TA86 PO; +CETI-24 PO; +GABA-282 PO; -GABA-843 PO; -LISI-538 PO; +LISI20TA33 PO; -METF-791 PO; +METF-838 PO; -PROHANCE 279.3MG/ML 5ML VIAL (A9576) As Ordered ONE
--- NOTE | 2020-11-03 09:56 | REPMRS ---
Patient History The patient states she has not had a clinical breast exam in over a year. Patient is postmenopausal. Family history of breast cancer in sister, endometrial cancer in mother. No Hormone Replacement Therapy Digital Woman Screen Mammo: November 03, 2020 - Exam #: [id number] Bilateral CC and MLO view(s) were taken. Technologist: Ruma Cruz, Technologist Prior study comparison: November 02, 2019, bilateral digital woman screen mammo performed at [facility]. August 15, 2018, bilateral digital woman screen mammo performed at [facility]. August 14, 2017, digital woman screen mammo performed at [facility]. FINDINGS: There are scattered fibroglandular densities. The Volpara volumetric breast density category is:B. There has been no change in the appearance of the mammogram from the prior studies. There is a mild amount of scattered fibroglandular density which is fairly symmetric. There is no interval development of dominant mass, architectural distortion, or grouped microcalcification suggestive of malignancy. 3-D tomosynthesis shows no additional findings. Assessment: BI-RADS/ACR category 1 mammogram. Negative Mammogram. Recommendation Routine screening mammogram of both breasts in 1 year (for women over age 40). This patient's [facility] Lifetime Breast Cancer Risk is estimated at 12.4 %. This mammogram was interpreted with the aid of an FDA-approved computer-aided dectection system. Electronically Signed By: Jesús Fernandez MD 11/03/20 0956
== END ==
LOC: M WHC 08:54
PROVIDERS: ATTEND Nurse Practitioner Adult Health
DX: Z12.31 Encounter for screening mammogram for malignant neoplasm of breast (principal); Z80.3 Family history of malignant neoplasm of breast; Z80.49 Family history of malignant neoplasm of other genital organs

== ENCOUNTER → 2021-03-23 | Outpatient (REF) | payer MEDICARE ==
[2021-03-23 13:53] LABS: HEMATOCRIT 39.3 % (36.0-47.0); HEMOGLOBIN 12.7 g/dl (12.0-15.5); MEAN CORPUSCULAR HEMOGLOBIN 28.3 pg (27.0-33.0); MEAN CORPUSCULAR HGB CONC 32.3 g/dl (32.0-36.5); MEAN CORPUSCULAR VOLUME 87.5 fl (80.0-96.0); PLATELET COUNT, AUTOMATED 250 10^3/uL (150-450); RED BLOOD COUNT 4.49 10^6/uL (4.00-5.40); WHITE BLOOD COUNT 5.7 10^3/uL (4.0-10.0)
[2021-03-23 14:26] LABS: HEMOGLOBIN A1c 6.9 %
[2021-03-23 14:33] LABS: CREATININE, URINE < 13.0 MG/DL; MALB URINE SIEMENS < 5.0 MG/L
[2021-03-23 14:36] LABS: ALBUMIN 4.1 GM/DL (3.2-5.2); BILIRUBIN,TOTAL 0.4 MG/DL (0.2-1.0); CALCIUM LEVEL 9.6 MG/DL (8.8-10.2); CHOLESTEROL RISK RATIO 2.787 (<5); CREATININE FOR GFR 1.18 MG/DL (0.55-1.30); FREE T4 0.79 NG/DL (0.76-1.46); GLOMERULAR FILTRATION RATE 48.9 (>45); POTASSIUM SERUM 4.8 MEQ/L (3.5-5.1); THYROID STIMULATING HORMONE 1.01 uIU/ML (0.358-3.740); TOTAL PROTEIN 7.2 GM/DL (6.4-8.2)
== END ==
LOC: M SFHCADAM 08:04
PROVIDERS: ATTEND Family Medicine
DX: I25.10 Atherosclerotic heart disease of native coronary artery without angina pectoris (principal); I11.9 Hypertensive heart disease without heart failure; E78.5 Hyperlipidemia, unspecified; E11.9 Type 2 diabetes mellitus without complications

== ENCOUNTER 2021-06-20 01:14 | Inpatient (IN) | payer MEDICARE ==
[~2021-06-20] VITALS: Ht 162.6 cm; Wt 86.0 kg
[2021-06-20] MEDS ORDERED: OMEP-218 PO (01:43)
[2021-06-20] MEDS ORDERED: BASA100I SC (01:43)
[2021-06-20 02:18] LABS: BASO % 0.2 % (0.0-1.0); EOS % 0.2 % (0.0-3.0); HEMATOCRIT 38.4 % (36.0-47.0); HEMOGLOBIN 12.9 g/dl (12.0-15.5); LYMPH # 1.5 10^3/uL (1.5-5.0); LYMPH % 11.2 % (24.0-44.0); MEAN CORPUSCULAR HEMOGLOBIN 29.1 pg (27.0-33.0); MEAN CORPUSCULAR HGB CONC 33.6 g/dl (32.0-36.5); MEAN CORPUSCULAR VOLUME 86.5 fl (80.0-96.0); MONO # 0.6 10^3/uL (0.0-0.8); MONO % 4.5 % (2.0-8.0); NEUTROPHILS # 11.1 10^3/uL (1.5-8.5); NEUTROPHILS % 83.5 % (36.0-66.0); PLATELET COUNT, AUTOMATED 208 10^3/uL (150-450); RED BLOOD COUNT 4.44 10^6/uL (4.00-5.40); WHITE BLOOD COUNT 13.3 10^3/uL (4.0-10.0)
[2021-06-20 03:22] LABS: BLOOD UREA NITROGEN 27 MG/DL (7-18); CARBON DIOXIDE LEVEL 28 MEQ/L (21-32); CHLORIDE LEVEL 107 MEQ/L (98-107); CK-MB VALUE MASS 1.1 NG/ML (<3.6); CPK CREATINE PHOSPHOKINASE 118 U/L (26-192); CREATININE FOR GFR 1.33 MG/DL (0.55-1.30); GLOMERULAR FILTRATION RATE 42.6 (>45); GLUCOSE, FASTING 195 MG/DL (70-100); MB/CK RELATIVE INDEX 0.93 (< OR =4); POTASSIUM SERUM 4.3 MEQ/L (3.5-5.1); SODIUM LEVEL 142 MEQ/L (136-145); TROPONIN I < 0.02 NG/ML (< 0.10)
--- NOTE | 2021-06-20 03:28 | REPVR ---
PROCEDURE INFORMATION: Exam: CT Head Without Contrast Exam date and time: 06/20/2021 1:48 AM Age: 66 years old Clinical indication: Injury or trauma; Fall; Concussion/head injury; Additional info: Syncope TECHNIQUE: Imaging protocol: Computed tomography of the head without contrast. Radiation optimization: All CT scans at this facility use at least one of these dose optimization techniques: automated exposure control; mA and/or kV adjustment per patient size (includes targeted exams where dose is matched to clinical indication); or iterative reconstruction. COMPARISON: No relevant prior studies available. FINDINGS: Brain: Normal. No hemorrhage. Unremarkable white matter. No mass effect. Cerebral ventricles: No ventriculomegaly. Paranasal sinuses: Visualized sinuses are unremarkable. No fluid levels. Mastoid air cells: Visualized mastoid air cells are well aerated. Bones/joints: Unremarkable. No acute fracture. Soft tissues: Unremarkable. IMPRESSION: No acute intracranial abnormality. Electronically signed by: Delgado Norman On 06/20/2021 03:28:06 AM
--- NOTE | 2021-06-20 03:30 | REPVR ---
PROCEDURE INFORMATION: Exam: CT Cervical Spine Without Contrast Exam date and time: 06/20/2021 1:48 AM Age: 66 years old Clinical indication: Neck pain; Additional info: Syncope TECHNIQUE: Imaging protocol: Computed tomography images of the cervical spine without contrast. Radiation optimization: All CT scans at this facility use at least one of these dose optimization techniques: automated exposure control; mA and/or kV adjustment per patient size (includes targeted exams where dose is matched to clinical indication); or iterative reconstruction. COMPARISON: CR Abdomen,Flat Upright,PA CHEST 2019-08-29 08:19 FINDINGS: Bones/joints: Straightening of the normal cervical lordotic curvature. Normal vertebral body heights and alignments. No fractures. Calcification of the odontoid tip. Discs/Spinal canal/Neural foramina: Mild degenerative mid cervical disc disease. Lungs: Lung apices are normal. Soft tissues: Unremarkable. IMPRESSION: No acute fracture/subluxation. Electronically signed by: Delgado Norman On 06/20/2021 03:30:38 AM
[2021-06-20] MEDS ORDERED: ONDANSETRON 4MG/2ML VIAL IV ONE (06:00)
[2021-06-20] MEDS ORDERED: MORPHINE 2 MG/ML 1ML VIAL (J2270) IV ONE (06:25)
[2021-06-20] MEDS ORDERED: METOCLOPRAMIDE INJ 10MG/2ML VIAL (J2765 PER 1) IV ONE (06:50)
[2021-06-20 06:51] LABS: ALBUMIN 3.8 GM/DL (3.2-5.2); ALT/SGPT 31 U/L (12-78); BILIRUBIN,DIRECT < 0.1 MG/DL (0.0-0.2); BILIRUBIN,TOTAL 0.4 MG/DL (0.2-1.0); TOTAL PROTEIN 6.7 GM/DL (6.4-8.2)
[2021-06-20] MEDS ORDERED: ISOVUE-370 76% 100ML VIAL As Ordered ONE (06:51)
[2021-06-20] MEDS ORDERED: BOOSTRIX/ADACEL VACCINE (DIPHTH/PERTUSS/ACELL/TETANUS) 0.5ML SYR IM ONE (07:05)
[2021-06-20 07:07] LABS: LIPASE 24526 U/L (73-393)
--- NOTE | 2021-06-20 08:34 | REPVR ---
PROCEDURE INFORMATION: Exam: CTA Chest With Contrast Exam date and time: 06/20/2021 6:45 AM Age: 66 years old Clinical indication: Pain; Other: Syncope TECHNIQUE: Imaging protocol: Computed tomographic angiography of the chest with contrast. 3D rendering (Not supervised by radiologist): MIP and/or 3D reconstructed images were created by the technologist. Radiation optimization: All CT scans at this facility use at least one of these dose optimization techniques: automated exposure control; mA and/or kV adjustment per patient size (includes targeted exams where dose is matched to clinical indication); or iterative reconstruction. Contrast material: ISO; Contrast volume: 100 ml; Contrast route: INTRAVENOUS (IV); COMPARISON: CR Abdomen,Flat Upright,PA CHEST 08/29/2019 8:19 AM FINDINGS: Pulmonary arteries: Normal. No pulmonary emboli. Aorta: Moderate atherosclerotic changes of the thoracic aorta extending into the coronary arteries, neck vessels, and abdominal aorta. No aortic aneurysm or dissection. Thyroid: Diminutive thyroid. Lungs: Dependent likely atelectatic and/or scarring changes in the lung bases without dense consolidation. No spiculated mass or nodule. Pleural spaces: Unremarkable. No pneumothorax. No pleural effusion. Heart: The heart is not enlarged there is no significant pericardial or mediastinal fluid. Lymph nodes: Unremarkable. No enlarged lymph nodes. Diaphragm: Tiny hiatal hernia. Intraperitoneal space: The visualized upper abdomen is evaluated separately. This includes the changes of apparent acute pancreatitis. Bones/joints: I see no evidence of acute fracture. Age-appropriate degenerative changes. Remote trauma to the T12 vertebral body. Soft tissues: Unremarkable. IMPRESSION: No acute abnormality of the chest. Electronically signed by: Lalo Garcia On 06/20/2021 08:34:33 AM
--- NOTE | 2021-06-20 08:38 | REPVR ---
PROCEDURE INFORMATION: Exam: CT Abdomen And Pelvis With Contrast Exam date and time: 06/20/2021 6:45 AM Age: 66 years old Clinical indication: Abdominal pain; Other: Syncope TECHNIQUE: Imaging protocol: Computed tomography of the abdomen and pelvis with contrast. Radiation optimization: All CT scans at this facility use at least one of these dose optimization techniques: automated exposure control; mA and/or kV adjustment per patient size (includes targeted exams where dose is matched to clinical indication); or iterative reconstruction. Contrast material: ISO; Contrast volume: 100 ml; Contrast route: INTRAVENOUS (IV); COMPARISON: MRI ABD W/O FOL WITH 12/24/2019 1:24 PM FINDINGS: Limitations: None. Lungs: Unremarkable. Liver: No focal liver lesions or ductal dilatation. Gallbladder and bile ducts: No definite gallstones or choledocholithiasis though there is some ill-defined density within the nondilated common bile duct. MRCP may be helpful. Pancreas: Diffuse fatty stranding and fluid surrounds the pancreas raising the question of acute pancreatitis. No pancreatic pseudocyst or definite pancreatic necrosis at this time. The pancreatic head and uncinate process are slightly less dense in the body and tail. Follow-up recommended here. Spleen: The spleen is not enlarged. Adrenal glands: Normal. No mass. Kidneys and ureters: Mild renal volume loss without stone or hydronephrosis. 15 mm likely cyst in the right kidney. Stomach and bowel: Sigmoid diverticuli without acute diverticulitis. Appendix: Postoperative changes at the base of the cecum and the appendix is not seen. Correlation with surgical history recommended. Intraperitoneal space: Unremarkable. No free air. No significant fluid collection. Vasculature: Moderate atherosclerotic changes of the aortoiliac system extending into the mesenteric and renal arteries without central thrombus. No venous thrombus. Lymph nodes: Unremarkable. No enlarged lymph nodes. Urinary bladder: Mildly distended urinary bladder without filling defects within. Reproductive: Question bilateral tubal ligation clips. Bones/joints: Osteopenia and degenerative changes without acute fracture. Remote trauma to T12. Grade 1 anterolisthesis of L4 on L5 without spondylolysis. Soft tissues: Unremarkable. Other findings: The visualized lower thorax is evaluated separately today. IMPRESSION: 1. Findings suggestive of acute pancreatitis. Please see the above discussion. 2. No definite gallstones or choledocholithiasis though there are some faint potential filling defects in the nondilated common bile duct. Consider follow-up MRCP. 3. No bowel obstruction or free air. 4. Renal cysts not requiring follow-up. 5. Question prior appendectomy. COMMENTS: Consistent with the [employer]'s Incidental Findings Committee white paper (J Am Phil Radiol 2018): Any incidental renal lesion less than 1 cm or classified as too small to characterize, or any incidental cystic renal lesion characterized as simple-appearing, is likely benign. No follow-up imaging is recommended for these lesions per consensus recommendations based on imaging criteria. Electronically signed by: Lalo Garcia On 06/20/2021 08:38:18 AM
[2021-06-20 09:41] LABS: RSV AMPLIFICATION NEGATIVE (NEGATIVE)
--- NOTE | 2021-06-20 09:50 | REP ---
INDICATION: pancreatitis COMPARISON: None. TECHNIQUE: Real time chi scale ultrasound examination using curved array transducer. FINDINGS: Liver is normal in contour, size, and echogenicity without focal hepatic lesions identified. Pancreas is incompletely evaluated due to interposed bowel gas but visualized portions appear normal. Small to moderate amount of peripancreatic fluid is appreciated. The gallbladder is normal and without gallstones, wall thickening, or pericholecystic fluid. However, pain was elicited with transducer pressure in the right upper quadrant. No biliary ductal dilatation is appreciated and the common bile duct measures 4.8 mm diameter. Right kidney is normal in reniform shape without hydronephrosis and measures 10.0 x 4.6 x 4.2 cm with a 1.7 cm lower pole suspected cyst. No ascites in the visualized right upper quadrant. IMPRESSION: 1. Small/moderate amount of peripancreatic fluid consistent with the given history of pancreatitis. 2. Relatively normal appearance of the gallbladder and biliary system. <Electronically signed by Grant Obando > 06/20/21 [id number]
[2021-06-20] MEDS ORDERED: ECOT81TA5 PO (10:01)
[2021-06-20] MEDS ORDERED: VITMTA PO (10:01)
[2021-06-20] MEDS ORDERED: ROSU20TA5 PO (10:01)
[2021-06-20] MEDS ORDERED: LR 1,000 ML IV ONE (10:05)
[2021-06-20] MEDS ORDERED: HOME MED LIST COMPLETE! XX SCH (10:05)
[2021-06-20 10:28] LABS: CK-MB VALUE MASS < 1.0 NG/ML (<3.6); CPK CREATINE PHOSPHOKINASE 84 U/L (26-192); MB/CK RELATIVE INDEX 1.19 (< OR =4); TROPONIN I < 0.02 NG/ML (< 0.10)
[2021-06-20] MEDS: LR 1,000 ML IV SCH ×4 (10:35→20:34)
[2021-06-20] MEDS ORDERED: DEXTROSE 50% 50 ML SYRINGE IV PRN (10:40)
[2021-06-20] MEDS ORDERED: MORPHINE 2 MG/ML 1ML VIAL (J2270) IV PRN (10:40)
[2021-06-20] MEDS ORDERED: GLUCOSE 4GM CHEW TABLET PO PRN (10:40)
[2021-06-20] MEDS ORDERED: GLUCAGON INJ 1MG VIAL SC PRN (10:40)
--- NOTE | 2021-06-20 11:11 | HPEPDOC ---
General Date of Admission Jun 20, 2021 at 10:33 Date of Service: Jun 20, 2021 Chief Complaint The patient is a 66-year-old female admitted with a reason for visit of Acute Pancreatitis. Source: Patient History of Present Illness Patient is 66 years old female with past medical history of hyperlipidemia, type 2 diabetes, history of pancreatitis, history of pancreatic divisum, GERD, IBS presented to hospital with nausea vomiting and abdominal pain. Patient stated that for past 2 days she has been having multiple episodes of vomiting associated with abdominal pain in the epigastric area which became diffuse today. Also patient reported 2 episodes of syncope with history of fall last night. Imaging studies negative for fractures or bleeding. She reported abdominal pain 10 out of 10. She denied diarrhea or dysuria. Patient denied fever, chills, chest pain, palpitations. In ER patient was found to have elevated blood systolic pressure up to 208, white blood count of 13.3, hemoglobin 12.9, creatinine 1.3, lipase level [id number]. CT scan was done and showed picture of acute pancreatitis. Gallbladder ultrasound showed Small/moderate amount of peripancreatic fluid consistent with the given history of pancreatitis. 2. Relatively normal appearance of the gallbladder and biliary system. Home Medications Scheduled Aspirin (Ecotrin) 81 Mg Tablet.dr, 81 MG PO DAILY, (Reported) Cetirizine HCl (Cetirizine HCl) 10 Mg Tablet, 10 MG PO DAILY, (Reported) Cyanocobalamin (Vitamin B-12) (B-12) 1,000 Mcg Tablet, 1,000 MCG PO DAILY, (Reported) Ezetimibe (Zetia) 10 Mg Tablet, 10 MG PO DAILY, (Reported) Furosemide (Furosemide) 40 Mg Tablet, 40 MG PO DAILY, (Reported) Insulin Glargine,Hum.rec.anlog (Basaglar Kwikpen U-100) 100 Unit/1 Ml Insuln.pen, 15 UNIT SC QHS, (Reported) Lisinopril (Lisinopril) 20 Mg Tablet, 20 MG PO DAILY, (Reported) Multivitamins (Thera M Plus Tablet) 1 Each Tablet, 1 TAB PO DAILY, (Reported) Omeprazole (Omeprazole) 20 Mg Capsule.dr, 20 MG PO DAILY, (Reported) Rosuvastatin Calcium (Rosuvastatin Calcium) 20 Mg Tablet, 20 MG PO QHS, (Reported) Scheduled PRN Acetaminophen (Acetaminophen) 325 Mg Tablet, 650 MG PO Q4H PRN for PAIN, (Reported) Allergies Coded Allergies: tramadol (Verified Allergy, Unknown, does not like the way it makes her feel, 02/10/19) Past Medical History Medical History TYPE 2 DIABETES, 2012 HYPERLIPIDEMIA--DOESN'T TOLERATE HIGHER DOSES OF STATINS; PSCK 9 INH ADVISED BY CARDIO/DECLINED. ON ROSUVA 20 MG/DAY CAD; S/P [place] 03/24, FOLLOWS [place] CARDIO/SLEZKA. S/P PTCA/MATILDA 03/24 UNSPECIFIED VESSEL (NOT INDICATED ON TAXUS CARD PROVIDED) SEASONAL ALLERGIES HYPERTENSION RUPTURED DISC LUMBAR REGION POSTMENOPAUSE FIBROCYSTIC BREAST DISEASE FAM HX BREAST CANCER-SISTER ACUTE PANCREATITIS 09/03; DX WITH PANCREAS DIVISUM ULYSSES, USES CPAP, FOLLOWS JOSEMANUEL/JAYLENE Surgical History BOWEL RESECTION 07/2001 GANGLION CYST, LEFT WRIST 1977 STENT PLACED IN HEART 03/2009 TUBAL LIGATION 1983 RIGHT TOE SURGERY, DUE TO FRACTURE 1990 SURGERY LEFT INDEX FINGER DUE TO SEVERED NERVE COLONOSCOPY (TUBULAR ADENOMA) 11/24 COLONOSCOPY--NORMAL 05/30 EGD/COLONOSCOPY-- NO POLYPS 03/04 Family History FATHER: 49 YRS, AMI, CAD, HTN MOTHER: 67 YRS, MVA, BORDERLINE HTN, DM, HYSTERECTOMY FOR LARGE UTERINE FIBROID SIBLINGS: ALIVE 61 YRS, SISTER WITH BREAST CANCER, DX EARLY 50 SON(S): ALIVE 42,38 YRS, OLDEST-AMI@41, 2 CARDIAC STENTS, DOING WELL. YOUNGER SON, NO KNOWN MEDICAL PROBLEMS DAUGHTER(S): ALIVE 31 YRS, NO KNOWN MEDICAL PROBLEMS 1 SISTER(S) . 2 SON(S) , 1 DAUGHTER(S) . DENIES COLON CANCER. Social History * Smoker: Denies Alcohol: occationally Drugs: denies A-FIB/CHADSVASC A-FIB History Current/History of A-Fib/PAF?: No Current PO Anticoag Therapy: No Review of Systems Constitutional: Reports: Weakness; Denies: Chills, Fever Eyes: Denies: Pain, Vision change ENT: Denies: Head Aches Skin: Denies: Rash Pulmonary: Denies: Dyspnea, Cough Cardiovascular: Denies: Chest Pain Gastrointestinal: Reports: Nausea, Vomiting, Abdominal Pain Genitourinary: Denies: Dysuria Hematologic: Denies: Bruising Endocrine: Denies: Polydipsia Musculoskeletal: Denies: Neck Pain Neurological: Denies: Weakness Psych: Reports: Mood Normal Physical Examination General Exam: Positive: Alert, Cooperative ENT Exam: Positive: Atraumatic Neck Exam: Positive: Supple Chest Exam: Positive: Clear to auscultation Heart Exam: Positive: Rate Normal Telemetry: Positive: No significant arrhythmia Abdomen Exam: Positive: BS Hypoactive, Tenderness (Diffuse in epigastric area); Negative: Normal bowel sounds Extremity Exam: Negative: Clubbing Skin Exam: Positive: Nl turgor and temperature Neuro Exam: Positive: Strength at 5/5 X4 ext Psych Exam: Positive: Mental status NL Vital Signs Vital Signs Date Time Temp Pulse Resp B/P (MAP) Pulse Ox O2 Delivery O2 Flow Rate FiO2 06/20/21 10:24 208/84 (125) 06/20/21 10:16 96 98 06/20/21 06:55 16 Room Air 06/20/21 01:31 96.6 Laboratory Data Labs 24H Laboratory Tests 2 06/20/21 02:06: Immature Granulocyte % (Auto) 0.4, Neutrophils (%) (Auto) 83.5H, Lymphocytes (%) (Auto) 11.2L, Monocytes (%) (Auto) 4.5, Eosinophils (%) (Auto) 0.2, Basophils (%) (Auto) 0.2, Neutrophils # (Auto) 11.1H, Lymphocytes # (Auto) 1.5, Monocytes # (Auto) 0.6, Eosinophils # (Auto) 0.0, Basophils # (Auto) 0.0, Nucleated Red Blood Cells % (auto) 0.0, Anion Gap 7L, Glomerular Filtration Rate 42.6L, Calc ium Level 9.0, Total Bilirubin 0.4, Direct Bilirubin < 0.1, Aspartate Amino Transf (AST/SGOT) 31, Alanine Aminotransferase (ALT/SGPT) 31, Alkaline Phosphatase 66, Total Creatine Kinase 118, Creatine Kinase MB 1.1, Creatine Kinase MB Relative Index 0.93, Troponin I < 0.02, Total Protein 6.7, Albumin 3.8, Albumin/Globulin Ratio 1.3, Lipase 91626D, Thyroid Stimulating Hormone (TSH) 1.850 06/20/21 02:10: Bedside Glucose (Misc Panel) 182H 06/20/21 08:42: Coronavirus (COVID-19)(PCR) NEGATIVE, Influenza Type A (RT-PCR) NEGATIVE, Influenza Type B (RT-PCR) NEGATIVE, Respiratory Syncytial Virus (PCR) NEGATIVE 06/20/21 09:40: Total Creatine Kinase 84, Creatine Kinase MB < 1.0, Creatine Kinase MB Relative Index 1.19, Troponin I < 0.02 CBC/BMP Laboratory Tests 06/20/21 02:06 Assessment/Plan Patient is 66 years old female with past medical history of hyperlipidemia, type 2 diabetes, history of pancreatitis, history of pancreatic divisum, GERD, IBS presented to hospital with nausea vomiting and abdominal pain. Patient stated that for past 2 days she has been having multiple episodes of vomiting ass ociated with abdominal pain in the epigastric area which became diffuse today. Also patient reported 2 episodes of syncope with history of fall last night. Imaging studies negative for fractures or bleeding. She reported abdominal pain 10 out of 10. She denied diarrhea or dysuria. Patient denied fever, chills, chest pain, palpitations. In ER patient was found to have elevated blood systolic pressure up to 208, white blood count of 13.3, hemoglobin 12.9, creatinine 1.3, lipase level [address]. CT scan was done and showed picture of acute pancreatitis. Gallbladder ultrasound showed Small/moder ate amount of peripancreatic fluid consistent with the given history of pancreatitis. 2. Relatively normal appearance of the gallbladder and biliary system. Problems (1) Acute pancreatitis Status: Acute Problem Text: Patient has history of previous pancreatitis. Patient has history of pancreatic divisum CT abdomen/pelvis confirm picture of acute pancreatitis Lactic ringer fluid to 250 cc/h N.p.o. for now Pain management We will check a triglyceride level (2) Diabetes mellitus Status: Chronic Problem Text: Insulin sliding scale Detemir twice daily (3) Acute kidney injury Status: Acute Problem Text: Secondary to dehydration due to acute pancreatitis Fluid resuscitation Continue to monitor (4) Nausea & vomiting Status: Chronic Problem Text: Zofran as needed (5) Dehydration Status: Acute Problem Text: Continue IV fluid (6) Hyperlipidemia Status: Chronic Problem Text: Continue statin (7) Hypertensive urgency Status: Acute Problem Text: Captopril 6.25 Continue home meds Continue to monitor (8) Syncope Status: Acute Problem Text: Most likely vasovagal Secondary to dehydration Telemetry Orthostatic vital signs every 8 hours Plan / VTE VTE Prophylaxis Ordered?: Yes CRUZ GONZALES DO Jun 20, 2021 11:11
[2021-06-20] MEDS ORDERED: CAPTOpril 6.25 MG PER 1/2 TABLET PO ONE (13:00)
[2021-06-20] MEDS: hydrALAZINE 20MG/ML 1ML VIAL (J0360 PER 20MG) IV PRN (15:21)
[2021-06-20] MEDS: DOCUSATE SODIUM 100MG CAPSULE PO SCH ×2 (15:57→20:17)
[2021-06-20] MEDS: HumaLOG INSULIN (NovoLOG) PER UNIT SC SCH ×3 (15:58→23:35)
[2021-06-20] MEDS: LEVEMIR (INSULIN DETEMIR) 1 UNITS/0.01ML SC SCH ×2 (15:58→20:16)
[2021-06-20 16:45] VITALS: BP 168/70
[2021-06-20] MEDS: MULTIVITAMINS/MINERALS THERAP 1 TAB PO SCH (17:47)
[2021-06-20] MEDS: ASPIRIN 81MG ENTERIC TABLET PO SCH (17:47)
[2021-06-20] MEDS: EZETIMIBE 10MG TABLET (ZETIA) PO SCH (17:48)
[2021-06-20] MEDS: OMEPRAZOLE 20 MG CAP PO SCH (17:48)
[2021-06-20] MEDS: PERCOCET 5MG/325MG TAB PO PRN (18:45)
[2021-06-20 20:00] VITALS: BP 161/71
[2021-06-20 20:03] VITALS: BP 147/65
[2021-06-20 20:05] VITALS: BP 149/66
[2021-06-20] MEDS: ROSUVASTATIN 10 MG TAB (CRESTOR) PO SCH (20:16)
[2021-06-20] MEDS: HEPARIN SOD (PORCINE) 5000UNITS/ML 1ML VIAL/SYRINGE SC SCH (20:16)
[2021-06-20] MEDS: METOPROLOL TART 25 MG TABLET PO SCH (20:17)
[2021-06-20] MEDS: ONDANSETRON 4MG/2ML VIAL IV SCH ×2 (20:17→23:36)
[2021-06-20] MEDS: ACETAMINOPHEN TAB 650MG DOSE (2X325MG) PO PRN (20:17)
[2021-06-20 23:44] VITALS: BP 150/72
[2021-06-21] MEDS: LR 1,000 ML IV SCH ×6 (00:31→21:41)
[2021-06-21 04:36] VITALS: BP_SYST 165; BP_SYST 176; BP_SYST 186; BP_DIAS 70; BP_DIAS 74; BP_DIAS 77
[2021-06-21] MEDS: hydrALAZINE 20MG/ML 1ML VIAL (J0360 PER 20MG) IV PRN (04:43)
[2021-06-21 05:30] VITALS: BP 151/66
[2021-06-21] MEDS: HumaLOG INSULIN (NovoLOG) PER UNIT SC SCH ×4 (05:53→21:00)
[2021-06-21] MEDS: ONDANSETRON 4MG/2ML VIAL IV SCH ×4 (05:53→23:21)
[2021-06-21 06:25] LABS: HEMATOCRIT 38.7 % (36.0-47.0); HEMOGLOBIN 12.8 g/dl (12.0-15.5); MEAN CORPUSCULAR HEMOGLOBIN 29.2 pg (27.0-33.0); MEAN CORPUSCULAR HGB CONC 33.1 g/dl (32.0-36.5); MEAN CORPUSCULAR VOLUME 88.2 fl (80.0-96.0); PLATELET COUNT, AUTOMATED 230 10^3/uL (150-450); RED BLOOD COUNT 4.39 10^6/uL (4.00-5.40); WHITE BLOOD COUNT 19.2 10^3/uL (4.0-10.0)
[2021-06-21 06:50] LABS: ALBUMIN 3.2 GM/DL (3.2-5.2); BILIRUBIN,TOTAL 0.5 MG/DL (0.2-1.0); CALCIUM LEVEL 9.1 MG/DL (8.8-10.2); CREATININE FOR GFR 0.99 MG/DL (0.55-1.30); GLOMERULAR FILTRATION RATE 59.9 (>45); MAGNESIUM LEVEL 1.8 MG/DL (1.8-2.4); POTASSIUM SERUM 4.2 MEQ/L (3.5-5.1); TOTAL PROTEIN 5.9 GM/DL (6.4-8.2)
[2021-06-21 08:00] VITALS: BP 166/70
[2021-06-21] MEDS: ASPIRIN 81MG ENTERIC TABLET PO SCH (10:10)
[2021-06-21] MEDS: OMEPRAZOLE 20 MG CAP PO SCH (10:11)
[2021-06-21] MEDS: METOPROLOL TART 25 MG TABLET PO SCH ×2 (10:11→20:42)
[2021-06-21] MEDS: DOCUSATE SODIUM 100MG CAPSULE PO SCH ×2 (10:12→20:41)
[2021-06-21] MEDS: MULTIVITAMINS/MINERALS THERAP 1 TAB PO SCH (10:12)
[2021-06-21] MEDS: EZETIMIBE 10MG TABLET (ZETIA) PO SCH (10:12)
[2021-06-21] MEDS: PERCOCET 5MG/325MG TAB PO PRN (10:13)
[2021-06-21] MEDS: HEPARIN SOD (PORCINE) 5000UNITS/ML 1ML VIAL/SYRINGE SC SCH ×2 (10:17→20:40)
[2021-06-21] MEDS: LEVEMIR (INSULIN DETEMIR) 1 UNITS/0.01ML SC SCH ×2 (10:18→20:40)
--- NOTE | 2021-06-21 11:30 | IPNPDOC ---
Text Note Date of Service The patient was seen on 06/21/21. NOTE Subjective: Patient stated that she feels a little bit better today, less abd ominal pain. She continues to complain of nausea. Objective: GENERAL APPEARANCE: NAD HEENT: no scleral icterus, no JVD, EOMI CARDIOVASCULAR: S1S2 LUNGS: Diminished lung sounds bilaterally ABDOMEN: soft & slightly tender w palpation in the left upper quadrant MUSCULOSKELETAL: no cyanosis, no swelling INTEGUMENT: no generalized pallor NEUROLOGICAL: cranial nerve function from 2-12 intact, follows commands, speech not dysarthric Assessment/Plan Patient is 66 years old female with past medical history of hyperlipidemia, type 2 diabetes, history of pancreatitis, history of pancreatic divisum, GERD, IBS presented to hospital with nausea vomiting and abdominal pain. Patient stated that for past 2 days she has been having multiple episodes of vomiting associated with abdominal pain in the epigastric area which became diffuse today. Also patient reported 2 episodes of syncope with history of fall last night. Imaging studies negative for fractures or bleeding. She reported abdominal pain 10 out of 10. She denied diarrhea or dysuria. Patient denied fever, chills, chest pain, palpitations. In ER patient was found to have elevated blood systolic pressure up to 208, white blood count of 13.3, hemoglobin 12.9, creatinine 1.3, lipase level [address]. CT scan was done and show ed picture of acute pancreatitis. Gallbladder ultrasound showed Small/moderate amount of peripancreatic fluid consistent with the given history of pancreatitis. 2. Relatively normal appearance of the gallbladder and biliary system. Problems (1) Acute pancreatitis Patient has history of previous pancreatitis. Patient has history of pancreatic divisum CT abdomen/pelvis confirm picture of acute pancreatitis Continue lactic ringer fluid to 250 cc/h. Early in the morning patient had positive orthostatic vital signs We will upgrade her diet to clear liquid Pain management triglyceride level within normal limit Lipase level trending down (2) Diabetes mellitus Insulin sliding scale Detemir twice daily (3) Acute kidney injury Baseline kidney function creatinine 0.9, creatinine 1.3 on admission Secondary to dehydration due to acute pancreatitis Fluid resuscitation Continue to monitor (4) Nausea & vomiting Zofran as needed (5) Dehydration Continue IV fluid (6) Hyperlipidemia Continue statin (7) Hypertensive urgency/hypertension Hypertensive urgency resolved I increased the dose of lisinopril to 40 mg daily and added to amlodipine 10 mg daily (8) Syncope Most likely vasovagal Secondary to dehydration Telemetry Orthostatic vital signs every 8 hours Plan / VTE VTE Prophylaxis Ordered?: Yes VS,Isidrobone, I+O VS, Fishbone, I+O Laboratory Tests 06/21/21 05:51 Vital Signs Date Time Temp Pulse Resp B/P (MAP) Pulse Ox O2 Delivery O2 Flow Rate FiO2 06/21/21 10:43 98.9 100 20 166/70 99 Room Air I&O- Last 24 Hours up to 6 AM 06/21/21 06:00 Intake Total 4000 ml Output Total 300 ml Balance 3700 ml CRUZ GONZALES DO Jun 21, 2021 11:30
[2021-06-21 12:00] VITALS: BP 127/61
[2021-06-21 16:00] VITALS: BP 156/66
--- NOTE | 2021-06-21 17:30 | ECGEPIP ---
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
--- NOTE | 2021-06-21 17:31 | ECGEPIP ---
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
[2021-06-21] MEDS: ACETAMINOPHEN TAB 650MG DOSE (2X325MG) PO PRN (17:35)
[2021-06-21 20:00] VITALS: BP_SYST 150; BP_SYST 167; BP_SYST 176; BP_DIAS 63; BP_DIAS 70; BP_DIAS 71
[2021-06-21] MEDS: ROSUVASTATIN 10 MG TAB (CRESTOR) PO SCH (20:40)
[2021-06-21] MEDS ORDERED: HumaLOG INSULIN (NovoLOG) PER UNIT SC SCH (22:20)
[2021-06-22] VITALS (7 sets, daily range): BP systolic 146–176; BP diastolic 58–74
[2021-06-22] MEDS: LR 1,000 ML IV SCH ×2 (01:53→05:48)
[2021-06-22] MEDS: ACETAMINOPHEN TAB 650MG DOSE (2X325MG) PO PRN ×3 (03:47→23:46)
[2021-06-22] MEDS: ONDANSETRON 4MG/2ML VIAL IV SCH ×4 (05:17→23:48)
[2021-06-22] MEDS: HumaLOG INSULIN (NovoLOG) PER UNIT SC SCH ×4 (07:30→20:14)
[2021-06-22] MEDS ORDERED: FUROSEMIDE 40MG/4ML VIAL (J1940) IV ONE (08:00)
[2021-06-22] MEDS: ASPIRIN 81MG ENTERIC TABLET PO SCH (08:19)
[2021-06-22] MEDS: EZETIMIBE 10MG TABLET (ZETIA) PO SCH (08:20)
[2021-06-22] MEDS: lisinopriL 40 MG TAB PO SCH (08:20)
[2021-06-22] MEDS: MULTIVITAMINS/MINERALS THERAP 1 TAB PO SCH (08:20)
[2021-06-22] MEDS: OMEPRAZOLE 20 MG CAP PO SCH (08:20)
[2021-06-22] MEDS: METOPROLOL TART 25 MG TABLET PO SCH ×2 (08:21→20:27)
[2021-06-22] MEDS: HEPARIN SOD (PORCINE) 5000UNITS/ML 1ML VIAL/SYRINGE SC SCH ×2 (08:21→20:27)
[2021-06-22] MEDS: LEVEMIR (INSULIN DETEMIR) 1 UNITS/0.01ML SC SCH ×2 (08:27→20:28)
[2021-06-22] MEDS: DOCUSATE SODIUM 100MG CAPSULE PO SCH ×2 (08:28→20:26)
[2021-06-22 08:38] LABS: BASO % 0.2 % (0.0-1.0); EOS # 0.2 10^3/uL (0.0-0.5); EOS % 1.2 % (0.0-3.0); HEMATOCRIT 32.1 % (36.0-47.0); LYMPH # 1.6 10^3/uL (1.5-5.0); MEAN CORPUSCULAR HEMOGLOBIN 29.2 pg (27.0-33.0); MEAN CORPUSCULAR HGB CONC 33.3 g/dl (32.0-36.5); MEAN CORPUSCULAR VOLUME 87.5 fl (80.0-96.0); MONO # 0.9 10^3/uL (0.0-0.8); MONO % 5.2 % (2.0-8.0); NEUTROPHILS # 14.4 10^3/uL (1.5-8.5); NEUTROPHILS % 80.9 % (36.0-66.0); PLATELET COUNT, AUTOMATED 183 10^3/uL (150-450); RED BLOOD COUNT 3.67 10^6/uL (4.00-5.40); WHITE BLOOD COUNT 17.8 10^3/uL (4.0-10.0)
[2021-06-22 08:46] LABS: HEMOGLOBIN 10.7 g/dl (12.0-15.5)
[2021-06-22 09:11] LABS: ALBUMIN 2.6 GM/DL (3.2-5.2); ALT/SGPT 20 U/L (12-78); BILIRUBIN,TOTAL 0.5 MG/DL (0.2-1.0); BLOOD UREA NITROGEN 13 MG/DL (7-18); CALCIUM LEVEL 8.8 MG/DL (8.8-10.2); CARBON DIOXIDE LEVEL 27 MEQ/L (21-32); CHLORIDE LEVEL 105 MEQ/L (98-107); GLOMERULAR FILTRATION RATE > 60.0 (>45); GLUCOSE, FASTING 89 MG/DL (70-100); MAGNESIUM LEVEL 1.5 MG/DL (1.8-2.4); POTASSIUM SERUM 3.9 MEQ/L (3.5-5.1); SODIUM LEVEL 137 MEQ/L (136-145); TOTAL PROTEIN 5.2 GM/DL (6.4-8.2)
[2021-06-22] MEDS ORDERED: AMLO1TAB25 PO (10:44)
[2021-06-22] MEDS ORDERED: LISI40TA4 PO (10:51)
[2021-06-22] MEDS ORDERED: METO1TAB87 PO (10:51)
--- NOTE | 2021-06-22 13:39 | IPNPDOC ---
Text Note Date of Service The patient was seen on 06/22/21. NOTE Subjective: Patient stated that she feels significantly better today. However patient developed low-grade fever in the morning 100.8. Patient denied any diarrhea, cough or sputum production Objective: GENERAL APPEARANCE: NAD HEENT: no scleral icterus, no JVD, EOMI CARDIOVASCULAR: S1S2 LUNGS: Diminished lung sounds bilaterally ABDOMEN: soft & slightly tender w palpation in the left upper quadrant MUSCULOSKELETAL: no cyanosis, no swelling INTEGUMENT: no generalized pallor NEUROLOGICAL: cranial nerve function from 2-12 intact, follows commands, speech not dysarthric Assessment/Plan Patient is 66 years old female with past medical history of hyperlipidemia, type 2 diabetes, history of pancreatitis, history of pancreatic divisum, GERD, IBS presented to hospital with nausea vomiting and abdominal pain. Patient stated that for past 2 days she has been having multiple episodes of vomiting associated with abdominal pain in the epigastric area which became diffuse today. Also patient reported 2 episodes of syncope with history of fall last night. Imaging studies negative for fractures or bleeding. She reported abdominal pain 10 out of 10. She denied diarrhea or dysuria. Patient denied fever, chills, chest pain, palpitations. In ER patient was found to have elevated blood systolic pressure up to 208, white blood count of 13.3, hemoglobin 12.9, creatinine 1.3, lipase level [address]. CT scan was done and showed picture of acute pancreatitis. Gallbladder ultrasound showed Small/moderate amount of peripancreatic fluid consistent with the given history of pancreatitis. 2. Relatively normal appearance of the gallbladder and biliary system. Problems (1) Acute pancreatitis Patient has history of previous pancreatitis. Patient has history of pancreatic divisum. Patient clinically improved today CT abdomen/pelvis confirm picture of acute pancreatitis We will upgrade her diet to soft mechanical diet Pain management triglyceride level within normal limit Lipase level trending down (2) Diabetes mellitus Insulin sliding scale Detemir twice daily (3) Acute kidney injury Resolved (4) Nausea & vomiting Zofran as needed (5) Dehydration Continue IV fluid (6) Hyperlipidemia Continue statin (7) Hypertensive urgency/hypertension Hypertensive urgency resolved I increased the dose of lisinopril to 40 mg daily and added to amlodipine 10 mg daily (8) Syncope Most likely vasovagal Secondary to dehydration Telemetry shows sinus rhythm Fever Unknown etiology Procalcitonin negative I ordered blood culture 2 sets Patient has leukocytosis of 17.8 which can be reactive. Respiratory panel negative We will check lactic acid, UA I will start empirically ceftriaxone IV We will repeat chest x-ray Plan / VTE VTE Prophylaxis Ordered?: Yes VS,Guilherme, I+O VS, Guilherme, I+O Laboratory Tests 06/22/21 08:11 Vital Signs Date Time Temp Pulse Resp B/P (MAP) Pulse Ox O2 Delivery O2 Flow Rate FiO2 06/22/21 12:02 100.8 83 16 155/68 (97) 90 Room Air 06/22/21 08:00 0.0 I&O- Last 24 Hours up to 6 AM 06/22/21 06:00 Intake Total 4420 ml Output Total 1575 ml Balance 2845 ml CRUZ GONZALES DO Jun 22, 2021 13:39
[2021-06-22] MEDS ORDERED: MAGNESIUM OXIDE 400MG TAB (MAG-OX) PO ONE (13:40)
--- NOTE | 2021-06-22 14:05 | REP ---
INDICATION: Atelectasis. COMPARISON: August 29, 2019. TECHNIQUE: Portable sitting AP chest radiograph. FINDINGS: The lungs are exposed at a lesser level of inspiration. There is slight blunting of the pleural angles bilaterally suggesting small bilateral effusions. The heart is mildly enlarged. Pulmonary vasculature is cephalized. There is fissural thickening in the minor fissure on the right. No infiltrate is seen. IMPRESSION: Suspect small effusions. Borderline heart size. Relatively low level of inspiration. <Electronically signed by Jesús Fernandez > 06/22/21 [id number]
[2021-06-22] MEDS ORDERED: cefTRIAXone SOD 2 GM in D5W MINI-BAG PLUS 50 ML IV SCH (15:00)
[2021-06-22] MEDS: ROSUVASTATIN 10 MG TAB (CRESTOR) PO SCH (20:26)
[2021-06-23] MEDS: ONDANSETRON 4MG/2ML VIAL IV SCH ×2 (05:58→13:44)
[2021-06-23 06:00] VITALS: BP 146/67
[2021-06-23] MEDS: HumaLOG INSULIN (NovoLOG) PER UNIT SC SCH ×2 (07:30→13:45)
[2021-06-23] MEDS ORDERED: MAGNESIUM OXIDE 400MG TAB (MAG-OX) PO SCH (09:00)
[2021-06-23] MEDS: OMEPRAZOLE 20 MG CAP PO SCH (09:57)
[2021-06-23] MEDS: LEVEMIR (INSULIN DETEMIR) 1 UNITS/0.01ML SC SCH (09:57)
[2021-06-23] MEDS: HEPARIN SOD (PORCINE) 5000UNITS/ML 1ML VIAL/SYRINGE SC SCH (09:57)
[2021-06-23] MEDS: DOCUSATE SODIUM 100MG CAPSULE PO SCH (09:57)
[2021-06-23] MEDS: ASPIRIN 81MG ENTERIC TABLET PO SCH (09:58)
[2021-06-23] MEDS: MULTIVITAMINS/MINERALS THERAP 1 TAB PO SCH (09:58)
[2021-06-23] MEDS: EZETIMIBE 10MG TABLET (ZETIA) PO SCH (09:58)
[2021-06-23] MEDS: lisinopriL 40 MG TAB PO SCH (09:59)
[2021-06-23 10:00] VITALS: BP 153/57
[2021-06-23] MEDS: METOPROLOL TART 25 MG TABLET PO SCH (10:00)
--- NOTE | 2021-06-23 17:22 | DS.PDOC ---
Discharge Summary General Date of Admission Jun 20, 2021 at 10:33 Date of Discharge 06/23/21 Discharge Summary PROCEDURES PERFORMED DURING STAY: [None]. ADMITTING DIAGNOSES: Acute pancreatitis Diabetes mellitus Acute kidney injury Nausea & vomiting Dehydration Hyperlipidemia Hypertensive urgency/hypertension Syncope Fever DISCHARGE DIAGNOSES: .Acute pancreatitis Diabetes mellitus Acute kidney injury Nausea & vomiting Dehydration Hyperlipidemia Hypertensive urgency/hypertension Syncope Fever SIRS COMPLICATIONS/CHIEF COMPLAINT: Acute Pancreatitis. HISTORY OF PRESENT ILLNESS: Patient is 66 years old female with past medical history of hyperlipidemia, type 2 diabetes, history of pancreatitis, history of pancreatic divisum, GERD, IBS presented to hospital with nausea vomiting and abdominal pain. Patient stated that for past 2 days she has been having multipl e episodes of vomiting associated with abdominal pain in the epigastric area which became diffuse today. Also patient reported 2 episodes of syncope with history of fall last night. Imaging studies negative for fractures or bleeding. She reported abdominal pain 10 out of 10. She denied diarrhea or dysuria. Patient denied fever, chills, chest pain, palpitations. In ER patient was found to have elevated blood systolic pressure up to 208, white blood count of 13.3, hemoglobin 12.9, creatinine 1.3, lipase level [address]65. CT scan was done and showed picture of acute pancreatitis. Gallbladder ultrasound showed Small/moderate amount of peripancreatic fluid consistent with the given history of pancreatitis. 2. Relatively normal appearance of the gallbladder and biliary system. HOSPITAL COURSE: During the hospital stay the following lisinopril (1) Acute pancreatitis Patient has history of previous pancreatitis. Patient has history of pancreatic divisum. Patient clinically improved today CT abdomen/pelvis confirm picture of acute pancreatitis Patient tolerated regular diet today Patient received treatment with pain management triglyceride level within normal limit Lipase level trending down (2) Diabetes mellitus Insulin sliding scale Detemir twice daily (3) Acute kidney injury Resolved (4) Nausea & vomiting Zofran as needed (5) Dehydration Patient received aggressive IV fluid (6) Hyperlipidemia Continue statin (7) Hypertensive urgency/hypertension Hypertensive urgency resolved I increased the dose of lisinopril to 40 mg daily and added to amlodipine 10 mg daily (8) Syncope Most likely vasovagal Secondary to dehydration Telemetry shows sinus rhythm Fever/ SIRS Patient developed low-grade fever with leukocytosis Most likely secondary to acute pancreatitis Procalcitonin negative blood culture negative Patient has leukocytosis of 17.8 most likely reactive Respiratory panel negative lactic acid within normal limit, UA negative Patient received empirically ceftriaxone IV for 1 day chest x-ray for acute pulmonary infiltrate DISCHARGE MEDICATIONS: Please see below. ALLERGIES: Please see below. PHYSICAL EXAMINATION ON DISCHARGE: VITAL SIGNS: Please see below. LABORATORY DATA: Please see below. IMAGING: GENERAL APPEARANCE: NAD HEENT: no scleral icterus, no JVD, EOMI CARDIOVASCULAR: S1S2 LUNGS: Diminished lung sounds bilaterally ABDOMEN: soft & slightly tender w palpation in the left upper quadrant MUSCULOSKELETAL: no cyanosis, no swelling INTEGUMENT: no generalized pallor NEUROLOGICAL: cranial nerve function from 2-12 intact, follows commands, speech not dysarthric PROGNOSIS: Fair ACTIVITY: [As tolerated]. DIET: Cardiac DISPOSITION: Home, Self-Care. DISCHARGE INSTRUCTIONS: Follow-up appointment with GI team DISCHARGE CONDITION: [Stable]. TIME SPENT ON DISCHARGE: 40 minutes. Vital Signs/I&Os Vital Signs Date Time Temp Pulse Resp B/P (MAP) Pulse Ox O2 Delivery O2 Flow Rate FiO2 06/23/21 10:00 90 153/57 06/23/21 06:00 98.8 16 93 Room Air 06/22/21 08:00 0.0 I&O- Last 24 Hours up to 6 AM 06/23/21 06:00 Intake Total 3380 ml Output Total 2550 ml Balance 830 ml Laboratory Data Labs 24H Laboratory Tests 2 06/22/21 19:52: Bedside Glucose (Misc Panel) 109 06/23/21 06:18: Bedside Glucose (Misc Panel) 68L 06/23/21 12:26: Bedside Glucose (Misc Panel) 117H FSBS Laboratory Tests Test 06/22/21 19:52 06/23/21 06:18 06/23/21 12:26 Range/Units Bedside Glucose (Misc Panel) 109 68 117 80-115 MG/DL Microbiology Microbiology 06/22/21 Blood Culture - Preliminary, Resulted No growth after 24 hours . All specim... 06/22/21 Respiratory Virus Panel (PCR) (JEANNETTE) - Final, Complete 06/22/21 Blood Culture - Preliminary, Resulted No growth after 24 hours . All specim... Discharge Medications Scheduled Aspirin (Ecotrin) 81 Mg Tablet.dr, 81 MG PO DAILY, (Reported) Cetirizine HCl (Cetirizine HCl) 10 Mg Tablet, 10 MG PO DAILY, (Reported) Cyanocobalamin (Vitamin B-12) (B-12) 1,000 Mcg Tablet, 1,000 MCG PO DAILY, (Reported) Ezetimibe (Zetia) 10 Mg Tablet, 10 MG PO DAILY, (Reported) Furosemide (Furosemide) 40 Mg Tablet, 40 MG PO DAILY, (Reported) Insulin Glargine,Hum.rec.anlog (Basaglar Kwikpen U-100) 100 Unit/1 Ml Insuln.pen, 15 UNIT SC QHS, (Reported) Lisinopril (Lisinopril) 40 Mg Tablet, 40 MG PO DAILY Metoprolol Tartrate (Metoprolol Tartrate) 25 Mg Tablet, 25 MG PO BID Multivitamins (Thera M Plus Tablet) 1 Each Tablet, 1 TAB PO DAILY, (Reported) Omeprazole (Omeprazole) 20 Mg Capsule.dr, 20 MG PO DAILY, (Reported) Rosuvastatin Calcium (Rosuvastatin Calcium) 20 Mg Tablet, 20 MG PO QHS, (Reported) Scheduled PRN Acetaminophen (Acetaminophen) 325 Mg Tablet, 650 MG PO Q4H PRN for PAIN, (Reported) Allergies Coded Allergies: tramadol (Verified Allergy, Unknown, does not like the way it makes her feel, 02/10/19) CRUZ GONZALES DO Jun 23, 2021 17:22
== END 2021-06-23 14:53 | disposition home or self-care (01) | DRG 439 ==
LOC: M ED 01:14 → M ED INP 10:33 → ENRESERV 10:55 → M PCU 16:40 → M MSPAV 06-22 15:27
PROVIDERS: ADMIT Internal Medicine; ATTEND Internal Medicine
DX: K85.90 Acute pancreatitis without necrosis or infection, unspecified (principal); R65.10 Systemic inflammatory response syndrome (SIRS) of non-infectious origin without acute organ dysfunction; N17.9 Acute kidney failure, unspecified; K86.89 Other specified diseases of pancreas; E11.9 Type 2 diabetes mellitus without complications; I16.0 Hypertensive urgency; R55 Syncope and collapse; I25.10 Atherosclerotic heart disease of native coronary artery without angina pectoris; E78.5 Hyperlipidemia, unspecified; E86.0 Dehydration; K21.9 Gastro-esophageal reflux disease without esophagitis; I10 Essential (primary) hypertension; Z79.82 Long term (current) use of aspirin; Z79.899 Other long term (current) drug therapy; Z79.4 Long term (current) use of insulin; Z88.8 Allergy status to other drugs, medicaments and biological substances

== ENCOUNTER → 2021-07-20 | Outpatient (REF) | payer MEDICARE ==
[~2021-07-20] MED LIST changes: +AMLO1TAB25 PO; +BASA100I SC; +ECOT81TA5 PO; +LISI40TA4 PO; +METO1TAB87 PO; +OMEP-218 PO; +ROSU20TA5 PO; +VITMTA PO
[2021-07-20 12:27] LABS: HEMATOCRIT 38.4 % (36.0-47.0); HEMOGLOBIN 12.3 g/dl (12.0-15.5); MEAN CORPUSCULAR HEMOGLOBIN 28.3 pg (27.0-33.0); MEAN CORPUSCULAR VOLUME 88.3 fl (80.0-96.0); PLATELET COUNT, AUTOMATED 228 10^3/uL (150-450); RED BLOOD COUNT 4.35 10^6/uL (4.00-5.40); WHITE BLOOD COUNT 7.6 10^3/uL (4.0-10.0)
[2021-07-20 13:10] LABS: ALBUMIN 3.9 GM/DL (3.2-5.2); BILIRUBIN,TOTAL 0.4 MG/DL (0.2-1.0); CALCIUM LEVEL 9.9 MG/DL (8.8-10.2); CHOLESTEROL RISK RATIO 3.466 (<5); CREATININE FOR GFR 1.26 MG/DL (0.55-1.30); GLOMERULAR FILTRATION RATE 45.4 (>45); POTASSIUM SERUM 4.7 MEQ/L (3.5-5.1); TOTAL PROTEIN 7.3 GM/DL (6.4-8.2)
[2021-07-20 13:37] LABS: HEMOGLOBIN A1c 7.1 %
== END ==
LOC: M SFHCADAM 09:01
PROVIDERS: ATTEND Family Medicine
DX: I25.10 Atherosclerotic heart disease of native coronary artery without angina pectoris (principal); E78.5 Hyperlipidemia, unspecified; E11.9 Type 2 diabetes mellitus without complications
CPT/HCPCS: 80053; 80061; 83036; 85027; G0463

== ENCOUNTER → 2021-08-21 | Outpatient (CLI) | payer MEDICARE ==
--- NOTE | 2021-08-21 10:54 | REP ---
INDICATION: IDIOPATHIC ACUTE PANCREATITIS WITHOUT NECROSIS OR. COMPARISON: None TECHNIQUE/RADIOTRACER AND DOSE: FOLLOWING THE INTRAVENOUS ADMINISTRATION OF 6.6 [employer] TECHNETIUM 99 M-MEBROFENIN, MULTIPLE IMAGES OF THE RIGHT UPPER QUADRANT ARE PERFORMED FOR 60 MINUTES. NEXT 8 OZ OF ENSURE ENLIVE IS INGESTED AND FURTHER IMAGING IS PERFORMED FOR 65 MINUTES. FINDINGS: THE GALLBLADDER IS VISUALIZED AT 35 MINUTES POST INJECTION. THERE IS BILIARY TO BOWEL TRANSIT AT 30MINUTES POST INJECTION. THERE IS NO SCINTIGRAPHIC EVIDENCE OF CHOLECYSTITIS. GALLBLADDER EJECTION FRACTION IS CALCULATED TO BE 91% WHICH IS NORMAL. IMPRESSION: NORMAL GALLBLADDER EJECTION FRACTION. <Electronically signed by Dewayne Lopez > 08/21/21 9815
== END ==
LOC: M RAD 07:56
PROVIDERS: ATTEND Internal Medicine Gastroenterology
DX: K85.00 Idiopathic acute pancreatitis without necrosis or infection (principal)
CPT/HCPCS: 78227; A9537

== ENCOUNTER → 2021-09-25 | Outpatient (REF) | payer MEDICARE ==
[2021-09-25 13:09] LABS: HEMATOCRIT 35.6 % (36.0-47.0); HEMOGLOBIN 11.5 g/dl (12.0-15.5); MEAN CORPUSCULAR HEMOGLOBIN 28.3 pg (27.0-33.0); MEAN CORPUSCULAR HGB CONC 32.3 g/dl (32.0-36.5); MEAN CORPUSCULAR VOLUME 87.7 fl (80.0-96.0); PLATELET COUNT, AUTOMATED 234 10^3/uL (150-450); RED BLOOD COUNT 4.06 10^6/uL (4.00-5.40)
[2021-09-25 13:31] LABS: HEMOGLOBIN A1c 6.6 %
[2021-09-25 13:39] LABS: ALBUMIN 3.6 GM/DL (3.2-5.2); ALT/SGPT 24 U/L (12-78); BILIRUBIN,TOTAL 0.3 MG/DL (0.2-1.0); BLOOD UREA NITROGEN 28 MG/DL (7-18); CALCIUM LEVEL 9.1 MG/DL (8.8-10.2); CARBON DIOXIDE LEVEL 29 MEQ/L (21-32); CHLORIDE LEVEL 109 MEQ/L (98-107); CHOLESTEROL LEVEL 169 MG/DL (<200); CHOLESTEROL RISK RATIO 3.188 (<5); CREATININE FOR GFR 0.98 MG/DL (0.55-1.30); FREE T4 0.77 NG/DL (0.76-1.46); GLOMERULAR FILTRATION RATE > 60.0 (>45); GLUCOSE, FASTING 115 MG/DL (70-100); HDL CHOLESTEROL 53 MG/DL (>40); LDL CHOLESTEROL 89 MG/DL (<100); NON-HDL-C 116 MG/DL; POTASSIUM SERUM 4.3 MEQ/L (3.5-5.1); SODIUM LEVEL 144 MEQ/L (136-145); TOTAL PROTEIN 6.6 GM/DL (6.4-8.2); TRIGLYCERIDES LEVEL 135 MG/DL (<150)
== END ==
LOC: M SFHCADAM 12:14
PROVIDERS: ATTEND Family Medicine
DX: I25.10 Atherosclerotic heart disease of native coronary artery without angina pectoris (principal); I11.9 Hypertensive heart disease without heart failure; E78.5 Hyperlipidemia, unspecified

== ENCOUNTER → 2021-09-25 | Outpatient (REF) | payer MEDICARE ==
[2021-09-25 13:09] LABS: BASO % 0.7 % (0.0-1.0); EOS # 0.2 10^3/uL (0.0-0.5); EOS % 3.4 % (0.0-3.0); HEMOGLOBIN 11.4 g/dl (12.0-15.5); LYMPH # 2.1 10^3/uL (1.5-5.0); LYMPH % 35.3 % (24.0-44.0); MEAN CORPUSCULAR HEMOGLOBIN 28.2 pg (27.0-33.0); MEAN CORPUSCULAR HGB CONC 32.6 g/dl (32.0-36.5); MEAN CORPUSCULAR VOLUME 86.6 fl (80.0-96.0); MONO # 0.4 10^3/uL (0.0-0.8); MONO % 6.8 % (2.0-8.0); NEUTROPHILS # 3.1 10^3/uL (1.5-8.5); NEUTROPHILS % 53.5 % (36.0-66.0); PLATELET COUNT, AUTOMATED 231 10^3/uL (150-450); RED BLOOD COUNT 4.04 10^6/uL (4.00-5.40); WHITE BLOOD COUNT 5.8 10^3/uL (4.0-10.0)
[2021-09-25 13:33] LABS: ALBUMIN 3.6 GM/DL (3.2-5.2); ALT/SGPT 25 U/L (12-78); BILIRUBIN,DIRECT < 0.1 MG/DL (0.0-0.2); BILIRUBIN,TOTAL 0.2 MG/DL (0.2-1.0); BLOOD UREA NITROGEN 27 MG/DL (7-18); CHOLESTEROL LEVEL 162 MG/DL (<200); CHOLESTEROL RISK RATIO 3.056 (<5); CREATININE FOR GFR 0.99 MG/DL (0.55-1.30); GLOMERULAR FILTRATION RATE 59.9 (>45); HDL CHOLESTEROL 53 MG/DL (>40); LDL CHOLESTEROL 83 MG/DL (<100); NON-HDL-C 109 MG/DL; TOTAL PROTEIN 6.4 GM/DL (6.4-8.2); TRIGLYCERIDES LEVEL 129 MG/DL (<150)
== END ==
LOC: M LABDRWAD 12:11
PROVIDERS: ATTEND Internal Medicine Gastroenterology
DX: K85.00 Idiopathic acute pancreatitis without necrosis or infection (principal); R10.13 Epigastric pain; I25.10 Atherosclerotic heart disease of native coronary artery without angina pectoris; I11.9 Hypertensive heart disease without heart failure; E78.5 Hyperlipidemia, unspecified; Z79.899 Other long term (current) drug therapy

== ENCOUNTER → 2021-12-12 | Outpatient (CLI) | payer MEDICARE ==
[~2021-12-12] MED LIST changes: +OMEP-173 PO; -OMEP-218 PO
== END ==
LOC: M WHC 08:47
PROVIDERS: ATTEND Family Medicine
DX: Z12.31 Encounter for screening mammogram for malignant neoplasm of breast (principal); Z13.820 Encounter for screening for osteoporosis; M85.851 Other specified disorders of bone density and structure, right thigh; M85.852 Other specified disorders of bone density and structure, left thigh; Z80.3 Family history of malignant neoplasm of breast

== ENCOUNTER → 2021-12-15 | Outpatient (CLI) | payer MEDICARE ==
[2021-12-15 17:04] LABS: BASO # 0.1 10^3/uL (0.0-0.2); BASO % 0.7 % (0.0-1.0); EOS # 0.1 10^3/uL (0.0-0.5); EOS % 1.4 % (0.0-3.0); HEMATOCRIT 36.2 % (36.0-47.0); HEMOGLOBIN 12.2 g/dl (12.0-15.5); LYMPH # 3.4 10^3/uL (1.5-5.0); LYMPH % 38.8 % (24.0-44.0); MEAN CORPUSCULAR HEMOGLOBIN 28.6 pg (27.0-33.0); MEAN CORPUSCULAR HGB CONC 33.7 g/dl (32.0-36.5); MEAN CORPUSCULAR VOLUME 84.8 fl (80.0-96.0); MONO # 0.6 10^3/uL (0.0-0.8); MONO % 6.9 % (2.0-8.0); NEUTROPHILS # 4.5 10^3/uL (1.5-8.5); PLATELET COUNT, AUTOMATED 233 10^3/uL (150-450); RED BLOOD COUNT 4.27 10^6/uL (4.00-5.40); WHITE BLOOD COUNT 8.7 10^3/uL (4.0-10.0)
[2021-12-15 17:45] LABS: ALBUMIN 4.1 GM/DL (3.2-5.2); BILIRUBIN,TOTAL 0.4 MG/DL (0.2-1.0); CALCIUM LEVEL 9.7 MG/DL (8.8-10.2); CREATININE FOR GFR 1.3 MG/DL (0.55-1.30); GLOMERULAR FILTRATION RATE 43.8 (>45); POTASSIUM SERUM 4.5 MEQ/L (3.5-5.1); TOTAL PROTEIN 7.1 GM/DL (6.4-8.2)
== END ==
LOC: M ADAMS 12:07
PROVIDERS: ATTEND Internal Medicine Gastroenterology
DX: K85.90 Acute pancreatitis without necrosis or infection, unspecified (principal)

== ENCOUNTER → 2022-01-05 | Outpatient (REF) | payer MEDICARE ==
[2022-01-05 12:43] LABS: CALCIUM LEVEL 10.1 MG/DL (8.8-10.2); CREATININE FOR GFR 1.24 MG/DL (0.55-1.30); GLOMERULAR FILTRATION RATE 46.2 (>45); POTASSIUM SERUM 4.3 MEQ/L (3.5-5.1)
[2022-01-05 12:56] LABS: HEMOGLOBIN A1c 6.3 %
== END ==
LOC: M SFHCPLAZ 10:56
PROVIDERS: ATTEND Family Medicine
DX: N28.9 Disorder of kidney and ureter, unspecified (principal); E11.9 Type 2 diabetes mellitus without complications

== ENCOUNTER → 2022-02-19 | Outpatient (CLI) | payer MEDICARE ==
[2022-02-19 13:43] LABS: BASO # 0.1 10^3/uL (0.0-0.2); BASO % 0.9 % (0.0-1.0); EOS # 0.1 10^3/uL (0.0-0.5); EOS % 2.2 % (0.0-3.0); HEMATOCRIT 38.1 % (36.0-47.0); HEMOGLOBIN 12.3 g/dl (12.0-15.5); LYMPH # 2.1 10^3/uL (1.5-5.0); LYMPH % 35.5 % (24.0-44.0); MEAN CORPUSCULAR HEMOGLOBIN 28.5 pg (27.0-33.0); MEAN CORPUSCULAR HGB CONC 32.3 g/dl (32.0-36.5); MEAN CORPUSCULAR VOLUME 88.2 fl (80.0-96.0); MONO # 0.5 10^3/uL (0.0-0.8); MONO % 7.9 % (2.0-8.0); NEUTROPHILS # 3.1 10^3/uL (1.5-8.5); NEUTROPHILS % 53.2 % (36.0-66.0); PLATELET COUNT, AUTOMATED 231 10^3/uL (150-450); RED BLOOD COUNT 4.32 10^6/uL (4.00-5.40); WHITE BLOOD COUNT 5.8 10^3/uL (4.0-10.0)
[2022-02-19 14:15] LABS: ALBUMIN 3.8 GM/DL (3.2-5.2); BILIRUBIN,DIRECT 0.1 MG/DL (0.0-0.2); BILIRUBIN,TOTAL 0.3 MG/DL (0.2-1.0); CREATININE FOR GFR 1.4 MG/DL (0.55-1.30); GLOMERULAR FILTRATION RATE 40.2 (>45); PERCENT SATURATION 21.2 % (13.2-45.0); TOTAL PROTEIN 6.7 GM/DL (6.4-8.2)
== END ==
LOC: M ADAMS 08:36
PROVIDERS: ATTEND Internal Medicine Gastroenterology
DX: R10.13 Epigastric pain (principal); K85.00 Idiopathic acute pancreatitis without necrosis or infection; Z79.899 Other long term (current) drug therapy

== ENCOUNTER → 2022-03-02 | Outpatient (CLI) | payer MEDICARE | LOC: M WUC 09:31 | PROVIDERS: ATTEND Student in an Organized Health Care Education/Training Program | DX: M25.562 Pain in left knee (principal) ==

== ENCOUNTER → 2022-03-30 | Outpatient (REF) | payer MEDICARE | LOC: M SFHCADAM 12:25 | PROVIDERS: ATTEND Family Medicine | DX: D23.71 Other benign neoplasm of skin of right lower limb, including hip (principal) ==

== ENCOUNTER → 2022-04-30 | Outpatient (CLI) | payer MEDICARE | LOC: M PLAIMG 13:23 | PROVIDERS: ATTEND Nurse Practitioner Adult Health | DX: R91.8 Other nonspecific abnormal finding of lung field (principal) ==

== ENCOUNTER → 2022-05-14 | Outpatient (REF) | payer MEDICARE ==
[2022-05-14 13:33] LABS: HEMATOCRIT 38.5 % (36.0-47.0); HEMOGLOBIN 12.5 g/dl (12.0-15.5); MEAN CORPUSCULAR HEMOGLOBIN 29.2 pg (27.0-33.0); MEAN CORPUSCULAR HGB CONC 32.5 g/dl (32.0-36.5); PLATELET COUNT, AUTOMATED 226 10^3/uL (150-450); RED BLOOD COUNT 4.28 10^6/uL (4.00-5.40); WHITE BLOOD COUNT 5.9 10^3/uL (4.0-10.0)
[2022-05-14 14:11] LABS: ALBUMIN 3.9 GM/DL (3.2-5.2); ALT/SGPT 24 U/L (12-78); BILIRUBIN,TOTAL 0.4 MG/DL (0.2-1.0); BLOOD UREA NITROGEN 31 MG/DL (7-18); CALCIUM LEVEL 9.3 MG/DL (8.8-10.2); CARBON DIOXIDE LEVEL 29 MEQ/L (21-32); CHLORIDE LEVEL 107 MEQ/L (98-107); CHOLESTEROL LEVEL 152 MG/DL (<200); CHOLESTEROL RISK RATIO 2.533 (<5); CREATININE FOR GFR 1.18 MG/DL (0.55-1.30); FERRITIN 27 NG/ML (8-252); GLOMERULAR FILTRATION RATE 48.8 (>45); GLUCOSE, FASTING 125 MG/DL (70-100); HDL CHOLESTEROL 60 MG/DL (>40); IRON (FE) 66 UG/DL (50-170); LDL CHOLESTEROL 73 MG/DL (<100); NON-HDL-C 92 MG/DL; PERCENT SATURATION 18.9 % (13.2-45.0); POTASSIUM SERUM 4.5 MEQ/L (3.5-5.1); SODIUM LEVEL 140 MEQ/L (136-145); TOTAL IRON BINDING CAPACITY 349 UG/DL (250-450); TOTAL PROTEIN 7.1 GM/DL (6.4-8.2); TRIGLYCERIDES LEVEL 95 MG/DL (<150)
[2022-05-14 14:43] LABS: VITAMIN B12 LEVEL > 2000 PG/ML (247-911)
[2022-05-14 14:44] LABS: FOLATE > 24.0 NG/ML (>5.4)
[2022-05-14 21:22] LABS: HEMOGLOBIN A1c 6.7 %
== END ==
LOC: M SFHCADAM 08:45
PROVIDERS: ATTEND Family Medicine
DX: D64.9 Anemia, unspecified (principal); E78.5 Hyperlipidemia, unspecified; E11.9 Type 2 diabetes mellitus without complications

== ENCOUNTER → 2022-06-11 | Outpatient (CLI) | payer MEDICARE | LOC: M WHC 08:44 | PROVIDERS: ATTEND Nurse Practitioner Family | DX: I65.29 Occlusion and stenosis of unspecified carotid artery (principal) ==

== ENCOUNTER 2022-09-21 09:37 | Emergency (ER) | payer MEDICARE ==
[~2022-09-21] VITALS: Ht 160 cm; Wt 77.1 kg
[2022-09-21 09:37] VITALS: BP 138/66
[2022-09-21] MEDS ORDERED: FURO20TA2 PO (10:22)
[2022-09-21] MEDS ORDERED: LASI20TA3 PO (10:22)
[2022-09-21] MEDS ORDERED: SENN-80 PO (10:23)
== END 2022-09-21 14:01 | disposition home or self-care (01) ==
LOC: M ED 09:37
DX: R22.42 Localized swelling, mass and lump, left lower limb (principal); M25.562 Pain in left knee; M79.662 Pain in left lower leg; E11.9 Type 2 diabetes mellitus without complications; K22.70 Barrett's esophagus without dysplasia; I10 Essential (primary) hypertension; E78.5 Hyperlipidemia, unspecified; Z87.891 Personal history of nicotine dependence; Z88.5 Allergy status to narcotic agent; Z88.8 Allergy status to other drugs, medicaments and biological substances; Z79.811 Long term (current) use of aromatase inhibitors; Z79.4 Long term (current) use of insulin; Z79.899 Other long term (current) drug therapy

== ENCOUNTER → 2022-12-24 | Outpatient (CLI) | payer MEDICARE ==
[~2022-12-24] MED LIST changes: +FURO20TA2 PO; +LASI20TA3 PO; +SENN-186 PO
== END ==
LOC: M WHC 12:59
PROVIDERS: ATTEND Nurse Practitioner Family
DX: N63.20 Unspecified lump in the left breast, unspecified quadrant (principal); R59.0 Localized enlarged lymph nodes
CPT/HCPCS: 76604; 77066; G0279

== ENCOUNTER → 2023-01-17 | Outpatient (CLI) | payer MEDICARE ==
[~2023-01-17] MED LIST changes: +ISOVUE-370 76% 100ML VIAL As Ordered ONE
== END ==
LOC: M RAD 08:36
PROVIDERS: ATTEND Nurse Practitioner Family
DX: D48.7 Neoplasm of uncertain behavior of other specified sites (principal); I25.10 Atherosclerotic heart disease of native coronary artery without angina pectoris; I70.0 Atherosclerosis of aorta; M48.54XA Collapsed vertebra, not elsewhere classified, thoracic region, initial encounter for fracture
CPT/HCPCS: 71260; Q9967

== ENCOUNTER → 2023-10-31 | Outpatient (CLI) | payer MEDICARE, MEDICAID ==
[~2023-10-31] MED LIST changes: +EZET10TA58 PO; -ISOVUE-370 76% 100ML VIAL As Ordered ONE; -ROSU20TA5 PO; +ROSU20TA61 PO; -ZETI10TA16 PO
== END ==
LOC: M WHC 07:46
PROVIDERS: ATTEND Nurse Practitioner Family
DX: K76.0 Fatty (change of) liver, not elsewhere classified (principal)

== ENCOUNTER 2023-11-26 09:51 | Day surgery (SDC) | payer MEDICARE, MEDICAID ==
[~2023-11-26] VITALS: Ht 160 cm; Wt 78.5 kg
[~2023-11-26 09:51] MED LIST changes: +C 50TAB PO; +CHOL25TA2 PO; +CVS10CAP7 PO; +DOCU100C16 PO; +EQL50TAB2 PO; +EZET10TA21 PO; +LACT20EL PO; +OMEG10002 PO
[2023-11-26] MEDS: NS 1,000 ML IV ONE (10:22)
[2023-11-26] MEDS ORDERED: LIDOCAINE 2% 100MG/5ML SDV (FOR ANES.) As Ordered ONE (12:09)
[2023-11-26] MEDS ORDERED: propofoL 200 MG/20 ML VIAL As Ordered ONE (12:09)
[2023-11-26 12:50] VITALS: TEMP 97.1
[2023-11-26 13:15] VITALS: BP 120/58; O2SAT 99
== END 2023-11-26 13:25 | disposition home or self-care (01) ==
LOC: M OPP 09:51
PROVIDERS: ATTEND Internal Medicine Gastroenterology
DX: Z86.010 Personal history of colon polyps (principal); K63.5 Polyp of colon; K64.4 Residual hemorrhoidal skin tags; K64.8 Other hemorrhoids; K57.30 Diverticulosis of large intestine without perforation or abscess without bleeding; Z98.0 Intestinal bypass and anastomosis status; I25.119 Atherosclerotic heart disease of native coronary artery with unspecified angina pectoris; E11.9 Type 2 diabetes mellitus without complications; G47.30 Sleep apnea, unspecified; Z86.74 Personal history of sudden cardiac arrest; Z87.891 Personal history of nicotine dependence; Z88.2 Allergy status to sulfonamides; Z88.5 Allergy status to narcotic agent; Z95.5 Presence of coronary angioplasty implant and graft

== ENCOUNTER → 2024-01-28 | Outpatient (CLI) | payer MEDICARE, MEDICAID ==
[~2024-01-28] MED LIST changes: +PROHANCE 279.3MG/ML 15ML VIAL ONE; -ROSU40TA4 PO; +ROSU40TA63 PO
== END ==
LOC: M PLAIMG 08:56
PROVIDERS: ATTEND Nurse Practitioner Family
DX: N28.1 Cyst of kidney, acquired (principal); K76.0 Fatty (change of) liver, not elsewhere classified; R93.3 Abnormal findings on diagnostic imaging of other parts of digestive tract
CPT/HCPCS: 74183; A9576

== ENCOUNTER → 2024-02-17 | Outpatient (CLI) | payer MEDICARE, MEDICAID ==
[~2024-02-17] MED LIST changes: -PROHANCE 279.3MG/ML 15ML VIAL ONE
[2024-02-17 10:06] LABS: ALBUMIN 3.8 G/DL (3.2-5.2); BILIRUBIN,DIRECT 0.1 MG/DL (<0.4); BILIRUBIN,TOTAL 0.5 MG/DL (0.3-1.2); CREATININE FOR GFR 1.12 MG/DL (0.55-1.30); GLOMERULAR FILTRATION RATE 51.7 (>45); TOTAL PROTEIN 6.5 G/DL (5.7-8.2)
== END ==
LOC: M LAB 08:59
PROVIDERS: ATTEND Nurse Practitioner Family
DX: R10.11 Right upper quadrant pain (principal)

== ENCOUNTER → 2024-03-04 | Outpatient (CLI) | payer MEDICARE, MEDICAID | LOC: M RAD 12:36 | PROVIDERS: ATTEND Nurse Practitioner Adult Health | DX: Z12.2 Encounter for screening for malignant neoplasm of respiratory organs (principal); Z87.891 Personal history of nicotine dependence ==

== ENCOUNTER 2024-03-06 15:29 | Emergency (ER) | payer MEDICARE, MEDICAID ==
[~2024-03-06] VITALS: Ht 160 cm; Wt 78.1 kg
[2024-03-06] MEDS: KETOROLAC 30 MG/ML 1ML VIAL IV ONE (17:39)
[2024-03-06] MEDS: ONDANSETRON 4MG 2ML VIAL IV ONE (17:39)
[2024-03-06] MEDS ORDERED: ISOVUE-370 76% 100ML VIAL As Ordered ONE (17:42)
[2024-03-06 17:45] LABS: BASO # 0.1 10^3/uL (0.0-0.2); BASO % 0.5 % (0.0-1.0); EOS # 0.1 10^3/uL (0.0-0.5); EOS % 1.3 % (0.0-3.0); HEMATOCRIT 37.9 % (36.0-47.0); HEMOGLOBIN 12.5 g/dl (12.0-15.5); LYMPH # 1.9 10^3/uL (1.5-5.0); LYMPH % 17.3 % (24.0-44.0); MEAN CORPUSCULAR HEMOGLOBIN 28.8 pg (27.0-33.0); MEAN CORPUSCULAR VOLUME 87.3 fl (80.0-96.0); MONO # 0.6 10^3/uL (0.0-0.8); MONO % 5.4 % (2.0-8.0); NEUTROPHILS % 75.1 % (36.0-66.0); PLATELET COUNT, AUTOMATED 394 10^3/uL (150-450); RED BLOOD COUNT 4.34 10^6/uL (4.00-5.40); WHITE BLOOD COUNT 10.7 10^3/uL (4.0-10.0)
[2024-03-06 18:08] LABS: ALBUMIN 3.7 G/DL (3.2-5.2); ALKALINE PHOSPHATASE 72 U/L (46-116); ALT/SGPT 17 U/L (7.0-40); AST/SGOT 28 U/L (<34); BILIRUBIN,DIRECT < 0.1 MG/DL (<0.4); BILIRUBIN,TOTAL 0.3 MG/DL (0.3-1.2); LIPASE 26 U/L (12-53)
[2024-03-06] MEDS: cefTRIAXone SOD 1 GM in D5W MINI-BAG PLUS 50 ML IV ONE (19:16)
[2024-03-06 20:03] VITALS: BP 127/58; TEMP 97.8; O2SAT 97
[2024-03-06] MEDS ORDERED: MIRA3350 PO (20:30)
[2024-03-06] MEDS ORDERED: CEFD1CAP9 PO (20:30)
== END 2024-03-06 20:35 | disposition home or self-care (01) ==
LOC: M ED 15:29
DX: N10 Acute pyelonephritis (principal); K59.00 Constipation, unspecified; I10 Essential (primary) hypertension; E11.9 Type 2 diabetes mellitus without complications; E78.5 Hyperlipidemia, unspecified; K57.92 Diverticulitis of intestine, part unspecified, without perforation or abscess without bleeding; I25.2 Old myocardial infarction; Z88.5 Allergy status to narcotic agent; Z88.8 Allergy status to other drugs, medicaments and biological substances; Z79.82 Long term (current) use of aspirin; Z79.2 Long term (current) use of antibiotics; Z79.4 Long term (current) use of insulin; Z79.811 Long term (current) use of aromatase inhibitors; Z79.899 Other long term (current) drug therapy
CPT/HCPCS: 74177; 80047; 80076; 81001; 83690; 85025; 96365; 96375; 99284; J0696; J1885; J2405; Q9967

== ENCOUNTER → 2024-05-22 | Outpatient (CLI) | payer MEDICARE, MEDICAID ==
[~2024-05-22] MED LIST changes: +CEFD1CAP9 PO; +ISOVUE-370 76% 100ML VIAL As Ordered ONE; +MIRA3350 PO; -ROSU40TA63 PO; +ROSU40TA81 PO
== END ==
LOC: M RAD 10:16
PROVIDERS: ATTEND Nurse Practitioner Family
DX: N28.89 Other specified disorders of kidney and ureter (principal); K59.00 Constipation, unspecified
CPT/HCPCS: 74178; Q9967

== ENCOUNTER → 2024-07-06 | Outpatient (CLI) | payer MEDICAID, MEDICARE ==
[~2024-07-06] MED LIST changes: +GABA-1172 PO; -GABA-282 PO; -ISOVUE-370 76% 100ML VIAL As Ordered ONE; -ROSU20TA61 PO; +ROSU20TA86 PO
== END ==
LOC: M WHC 11:00
PROVIDERS: ATTEND Nurse Practitioner Family
DX: Z12.31 Encounter for screening mammogram for malignant neoplasm of breast (principal)

== ENCOUNTER → 2025-07-30 | Outpatient (CLI) | payer MEDICARE, OTHER ==
[~2025-07-30] MED LIST changes: -EQL50TAB2 PO; -EZET10TA21 PO; +EZET10TA57 PO; +LISI40TA10 PO; -LISI40TA4 PO; +VITA1TAB82 PO
[2025-07-30 14:05] LABS: BASO # 0.0 10^3/uL (0.0-0.2); BASO % 0.6 % (0.0-1.0); EOS # 0.1 10^3/uL (0.0-0.5); EOS % 1.9 % (0.0-3.0); LYMPH # 2.1 10^3/uL (1.5-5.0); LYMPH % 33.3 % (24.0-44.0); MONO # 0.5 10^3/uL (0.0-0.8); MONO % 7.4 % (2.0-8.0); NEUTROPHILS # 3.5 10^3/uL (1.5-8.5); NEUTROPHILS % 56.0 % (36.0-66.0); PLATELET COUNT, AUTOMATED 273 10^3/uL (150-450)
[2025-07-30 14:16] LABS: ALT/SGPT 15.0 U/L (7.0-40); AST/SGOT 18.0 U/L (<34); CALCIUM LEVEL 9.5 MG/DL (8.3-10.6); CARBON DIOXIDE LEVEL 29.0 MMOL/L (20-31); CHLORIDE LEVEL 107.0 MMOL/L (98-107); CHOLESTEROL LEVEL 302.0 MG/DL (<200); CHOLESTEROL RISK RATIO 4.85 (<5); CREATININE FOR GFR 0.98 MG/DL (0.55-1.30); GLOMERULAR FILTRATION RATE 62.5 (>45); LDL CHOLESTEROL 215.6 MG/DL (<100); NON-HDL-C 239.8 MG/DL; POTASSIUM SERUM 5.1 MMOL/L (3.5-5.1); SODIUM LEVEL 144.0 MMOL/L (136-145); TOTAL 25(OH) VITAMIN D 51.7 NG/ML (20.0-100.0); TRIGLYCERIDES LEVEL 121.0 MG/DL (<150)
[2025-07-30 14:19] LABS: ESTIMATED AVERAGE GLUCOSE 140.0 MG/DL (60-110)
== END ==
LOC: M LABDRWAD 07:59
PROVIDERS: ATTEND Nurse Practitioner Family
DX: I10 Essential (primary) hypertension (principal); E11.9 Type 2 diabetes mellitus without complications; E78.5 Hyperlipidemia, unspecified; K59.04 Chronic idiopathic constipation; E55.9 Vitamin D deficiency, unspecified

== ENCOUNTER → 2025-09-01 | Outpatient (CLI) | payer MEDICARE | LOC: M WHC 07:59 | DX: Z12.31 Encounter for screening mammogram for malignant neoplasm of breast (principal) ==